=== PATIENT | male | born 1955 | race Two or more races ===

== ENCOUNTER 2024-09-15 11:05 | Inpatient (IN) | payer OTHER ==
[~2024-09-15] VITALS: Ht 170.2 cm; Wt 75.6 kg
--- NOTE | 2024-09-15 11:41 | ED.PDOC ---
GI ASSESSMENT HPI Comments 69y M who presents to the ED for chief complaint of abdominal pain. - pt states he has been having RUQ abdominal pain radiating to the R flank since 0600 this AM - pt states the pain is constant, with no noted exacerbating or relieving factors - pt has associated 1 x vomiting episode but pt otherwise denies nausea, diarrh ea, fever, cough, chills, dysuria, hematuria, or hematemesis - pt otherwise denies any other symptoms at this time PMH: HTN, DM PSH: eyelid surgery Medications: unknown Allergies: nkda social history: denies ETOH use, denies tobacco use, denies drug use Jayden; HPI: Poor Historian. 69-year-old male presents to emergency department for one day history of right sided abdominal pain right flank but mostly right upper quadrant pain that is constant with the associated one episode of nausea and vomiting nonbilious nonbloody. This started at 6:00 a.m. this morning. Pain is constant. No alleviating or precipitating factors. Past Medical History: Past Surgical History: REVIEW OF SYSTEMS: CONSTITUTIONAL: Denies acute: fever, diaphoresis, chills, generalized weakness. HEAD: Denies acute: headache, photophobia Eyes: Denies acute: Double vision, vision loss, eye pain, eye discharge. EARS: Denies acute: tinnitus, hearing loss, ear discharge, ear pain, THROAT: Denies acute: sore throat, swelling, difficulty swallowing , pain with swallowing, change in voice. NECK: Denies acute: neck pain, neck swelling, stiff neck. HEART: Denies acute : chest pain, palpitations, LUNGS: Denies acute: SOB, wheezing, cough, hemoptysis ABDOMEN: Denies acute: diarrhea, melena , hematemesis, hematochezia SKIN: Denies acute: rash, redness, lesions, itchiness. EXTREMITIES: Denies acute: calf pain, numbness, tingling, weakness, denies pain in extremity. Denies acute: Low back pain. Neuro: Denies acute: focal neurological deficit, motor or sensory focal neurological deficit, tremors, seizure like activity, confusion, dizziness, change in mental status, loss of bowel or bladder function, cauda equina like symptoms. : Denies acute: dysuria, hematuria, increase in urinary frequency. PSYCH: Denies acute: hallucination, suicidal ideation, homicidal ideation. PHYSICAL EXAM: General: ----[id number]----acute distress, awake and alert. Head: normocephalic, atraumatic. Neck: supple, trachea is midline, no swelling. Throat: Normal phonation. Eyes:, no erythema, no purulent discharge, no proptosis, no icterus. Heart: regular rate, regular rhythm, no significant murmur appreciated. Lungs: no apparent respiratory distress, Able to speak in full sentences. No wheezing, no rhonchi, no crackles. No stridors Clear to auscultation bilaterally. Abdomen: Right upper quadrant tender to palpation, non distended, soft, no guarding, no rebound, + bowel sounds. Neuro: Awake, Alert, oriented to name, self, situation, follows commands GCS=15. Speech is normal. Skin: no petechia, no purpura, no cyanosis, non-pale, not jaundice. Lower extremities: --no - Pitting edema no deformity, no focal swelling, no calf TTP. Makes eye contact. moves all four extremities. Face: no apparent facial droop. Minimal right CVA tenderness to percussion . Ambulating in the ED independently. ED COURSE: Time Seen by MD: 11:40 Reviewed Notes: Nurses Notes, Medications, Allergies Allergies: Coded Allergies: NO KNOWN ALLERGIES (Unverified , 09/15/24) Information Source: Patient Mode of Arrival: Ambulatory Brought in by: self Was a procedure done? Was a procedure done?: No GI differential Dx Differential Diagnosis: Other (Flank Pain;DDX include Nephrolethiasis, obstructive uropathy, kidney cancer, renal infarct, intraabdominal neoplasm, lower lobe pneumonia, retroperitoneal hemorrhage, pancreatitis, aneurysm, dissection, musculoskeletal, rib contusion/trauma, hematoma, PYLONEPHRITIS, muscle strain, spinal disease. ) X-Ray, Labs, Meds, VS Vital Signs Date Time Temp Pulse Resp B/P (MAP) Pulse Ox O2 Delivery O2 Flow Rate FiO2 09/15/24 18:50 89 20 96 Room Air 09/15/24 18:49 98.9 89 20 134/82 (99) 96 98.9 09/15/24 15:29 91 206/86 09/15/24 15:21 98.4 91 17 206/86 (126) 95 98.4 09/15/24 14:46 98.9 70 16 211/89 (129) 97 98.9 09/15/24 14:46 70 16 97 Room Air* 0 21 09/15/24 14:38 211/89 09/15/24 11:48 99.5 72 18 227/119 (155) 98 99.5 Lab Test 09/15/24 16:12 09/15/24 13:25 09/15/24 11:27 Range/Units Urine Color Light-yellow Yellow Urine Clarity Clear Clear Urine pH 6.5 5.0-9.0 Urine Specific [place] 1.031 1.001-1.035 Urine Protein Trace H Negative Urine Ketones 1+ H Negative Urine Blood Trace H Negative /uL Urine Nitrite Negative Negative Urine Bilirubin Negative Negative Urine Urobilinogen Normal Negative mg/dL Urine Leukocyte Esterase Negative Negative /uL Urine RBC 6 0 - 3 /hpf Urine Microscopic WBC 1 0-3 /HPF Urine Squamous Epithelial Cells None seen <5 /hpf Urine Bacteria None seen None Seen /hpf Urine Glucose 4+ H Normal mg/dL Lactic Acid Level 1.9 2.1 *H 0.4-2.0 mmol/L White Blood Count 14.6 H 4.4-10.8 10^3/uL Red Blood Count 5.61 4.5-5.90 10^6/uL Hemoglobin 16.3 13.5-17.5 g/dL Hematocrit 49.0 41.0-53.0 % Mean Corpuscular Volume 87.5 80.0-100.0 fL Mean Corpuscular Hemoglobin 29.1 28.0-32.0 pg Mean Corpuscular Hemoglobin Concent 33.2 32.0-36.0 g/dL Red Cell Distribution Width 14.0 11.8-14.3 % Platelet Count 357 140-450 10^3/uL Mean Platelet Volume 7.6 6.9-10.8 fL Neutrophils (%) (Auto) 84.0 H 37.0-80.0 % Lymphocytes (%) (Auto) 9.0 L 10.0-50.0 % Monocytes (%) (Auto) 6.1 0.0-12.0 % Eosinophils (%) (Auto) 0.4 0.0-7.0 % Basophils (%) (Auto) 0.5 0.0-2.0 % Neutrophils # (Auto) 12.3 H 1.6-8.6 10 ^3/uL Lymphocytes # (Auto) 1.3 0.4-5.4 10 ^3/uL Monocytes # (Auto) 0.9 0-1.3 10 ^3/uL Eosinophils # (Auto) 0.1 0-0.8 10 ^3/uL Basophils # (Auto) 0.1 0-0.2 10 ^3/uL Nucleated Red Blood Cells 0.0 % Sodium Level 134 L 136-145 mmol/L Potassium Level 4.5 3.5-5.1 mmol/L Chloride Level 97 L 98-107 mmol/L Carbon Dioxide Level 29 20-31 mmol/L Anion Gap 8 5-15 Blood Urea Nitrogen 18 9-23 mg/dL Creatinine 1.69 H 0.700-1.30 mg/dL Glomerular Filtration Rate Calc 43 >90 mL/min BUN/Creatinine Ratio 10.7 10.0-20.0 Serum Glucose 622 *H 74-106 mg/dL Hemoglobin A1c Pending Calcium Level 10.6 H 8.7-10.4 mg/dL Total Bilirubin 0.9 0.2-1.0 mg/dL Aspartate Amino Transferase (AST) 25 13-40 U/L Alanine Aminotransferase (ALT) 28 7-40 U/L Alkaline Phosphatase 235 H 46-116 U/L Troponin I High Sensitivity 13 </=54 ng/L Total Protein 7.8 5.7-8.2 g/dL Albumin 4.7 3.2-4.8 g/dL Lipase 43 12-53 U/L Current Medications Medications (Trade) Dose Ordered Sig/Annabelle Route Start Time Stop Time Status Last Admin Labetalol HCl (Labetalol HCl) 5 mg ONCE ONCE IV 09/15/24 11:45 09/15/24 11:46 DC 09/15/24 15:29 Ondansetron HCl (Zofran) 8 mg ONCE ONCE IV 09/15/24 11:45 09/15/24 11:46 DC 09/15/24 14:33 Insulin Human Regular (InsuLIN R) 5 units ONCE ONCE IV 09/15/24 12:30 09/15/24 12:42 DC 09/15/24 14:41 Sodium Chloride 1,000 ml @ 1,000 mls/hr Q1H ONCE IV 09/15/24 12:30 09/15/24 13:29 DC 09/15/24 14:31 Ceftriaxone Sodium 50 ml @ 100 mls/hr ONCE ONCE IV 09/15/24 13:00 09/15/24 13:29 DC 09/15/24 14:31 Tamsulosin HCl (Flomax) 0.4 mg ONCE ONCE PO 09/15/24 13:00 09/15/24 13:03 DC 09/15/24 14:31 Fentanyl Citrate 100 mcg ONCE ONCE IV 09/15/24 13:00 09/15/24 13:03 DC 09/15/24 14:38 Metoclopramide HCl (Reglan Injection) 5 mg ONCE ONCE IV 09/15/24 15:45 09/15/24 15:46 DC 09/15/24 15:54 [place] [id number] Ph: [phone] DIAGNOSTIC IMAGING Diagnostic Imaging Report : [id number] Signed PATIENT: ANNABELLE MORALESACCT: [id number] UNIT: [id number] : 1955 LOC: ER ROOM / BED: / AGE / SEX: 69 / M ADM STATUS: REG ER SERVICE [id number] ORDERING PHYSICIAN: DIDI CRUZ DO PROCEDURE(s): HWOCT - HEAD WITHOUT CONTRAST REASON: HIGH BP ORDER NUMBER(s): [id number], ACCESSION NUMBER(s): [id number] EXAM: CT HEAD WITHOUT CONTRAST INDICATION: HIGH BP TECHNIQUE: CT of the head without intravenous contrast. Coronal and sagittal reformatted images are submitted. Radiation Dose : 1. Head: CT Dose: CTDI volume is 11.9 mGy. Dose-length product is 719.5 mGy*cm The dose indicators for CT are the volume Computed Tomography (CT) Dose Index (CTDIvol) and the Dose Length Product (DLP), and are measured in units of mGy and mGy-cm, respectively. These indicators are not patient dose, but values generated from the CT scanner acquisition factors. The report includes radiation exposure data for exposures received during this examination. All CT scans at this medical facility are performed using dose modulation techniques as appropriate to a performed exam including the following: Automated exposure control was utilized; adjustment of the MA and/or KV according to patient size; and use of iterative reconstruction technique. COMPARISON: None FINDINGS: There is no evidence of acute intracranial hemorrhage, extra-axial collection, mass effect, midline shift, herniation or hydrocephalus. The ventricles, sulci and cisterns are age appropriate. The deng-white differentiation is intact. The visualized paranasal sinuses and mastoid air cells are clear. No depressed calvarial fracture. The surrounding soft tissues are unremarkable. IMPRESSION: 1. No acute intracranial abnormality. ATED BY: BRYN WILKINS MD DICTATED DATE/TIME: 09/15/241202 SIGNED BY: BRYN WILKINS MD SIGNED DATE/TIME: 09/15/241202 CC: [place] [id number] Ph: [phone] DIAGNOSTIC IMAGING Diagnostic Imaging Report : [id number] Signed PATIENT: ANNABELLE MORALESACCT: [id number] UNIT: [id number] : 1955 LOC: ER ROOM / BED: / AGE / SEX: 69 / M ADM STATUS: REG ER SERVICE [id number] ORDERING PHYSICIAN: DIDI CRUZ DO PROCEDURE(s): ABPL - CT AB PEL WO CON-NO ORAL OR IV REASON: R flank pain ORDER NUMBER(s): [id number], ACCESSION NUMBER(s): [id number] Exam: CT CT AB PEL WO CON-NO ORAL OR IV History: R flank pain Comparison Study: None available at time of dictation. Technique: Multidetector spiral CT of the abdomen and pelvis was performed from lung bases to pubic symphysis. Imaging was performed without intravenous contrast. Coronal and sagittal multiplanar reformats were obtained from the axial data set by the technologist. Radiation Dose : 1. Abdomen/Pelvis: CTDIvol 11.9 mGy, DLP 719.5 mGy*cm. Findings: Evaluation of vasculature and solid organs is limited due to lack of intravenous contrast use. Lung Bases: Lung bases are clear. Visualized portions of the heart and pericardium are unremarkable. Liver: The liver is normal in size. No focal lesions. Gallbladder and Biliary Tree: The gallbladder contains multiple gallstones. No intrahepatic or extrahepatic biliary ductal dilatation. Spleen: Unremarkable Pancreas: The pancreas is grossly unremarkable. Adrenal Glands: 2 cm left adrenal nodule. The right adrenal gland is unremarkable. Kidneys: Mild right hydroureteronephrosis due to 4 mm proximal ureteral calculus. There are additional nonobstructive intrarenal calculi in the right kidney. Right perinephric fat stranding. Punctate nonobstructing left intrarenal calculus. GI tract: The stomach is grossly normal in appearance. No evidence of small bowel wall thickening or abnormal dilatation to suggest bowel obstruction. Sigmoid diverticulosis without acute diverticulitis. The appendix is not visualized, however no inflammatory changes in the right lower quadrant to suggest acute appendicitis. Peritoneum/mesentery/retroperitoneum. No evidence of free intraperitoneal air. No ascites. No evidence of suspicious lymphadenopathy. Abdominal Wall: Unremarkable. Vasculature: The visualized abdominal aorta is normal in size and caliber. Evaluation of abdominal and pelvic vessels is limited due to lack of intravenous contrast. Urinary Bladder: Wall thickening of the urinary bladder. Pelvic Organs: The prostate is enlarged measuring 4.5 cm. Musculoskeletal: No aggressive focal bony lesions, acute fractures or dislocation. Soft tissues: Fat containing right inguinal hernia. IMPRESSION: 1. Right hydronephrosis due to 4 mm obstructing right proximal ureteral calculus. Additional bilateral nonobstructive intrarenal calculi. 2. Gallstones. 3. Sigmoid diverticulosis without acute diverticulitis. 4. Enlarged prostate. ATED BY: BRYN WILKINS MD DICTATED DATE/TIME: 09/15/241221 SIGNED BY: BRYN WILKINS MD SIGNED DATE/TIME: 09/15/242 CC: Time of 1ST Reevaluation: 13:58 (The case was discussed with the [place] admitting team (HPI, physical exam, labs and diagnostic tests that were available at the time of disposition, ED course, treatment plan) on the phone. They authorized us to keep the patient in our facility for further evaluation and treatment Dr. Nunez Authorization number is--[id number].Uncontrolled diabetes with hypertensive urgency and possibly an infected stone) Reevaluation 1ST: Unchanged Time of 2ND Reevaluation: 21:27 Reevaluation 2ND: Improved Patient Education/Counseling: Diagnosis, Treatment Family Education/Counseling: No Family Present Comments Patient presented with the above HPI.----right flank.--workup was initiated. patient was found with the above mentioned diagnosis. the following medications were ordered: please refer to order lists of meds and tests obtained by myself Dr. Cruz. Patient ED course and VS have been stabilized. Patient has been reassessed in the ED and remained in a stable condition. Pertinent incidental findings were discussed with the patient and/or family. Patient/family voices understanding and is agreeable with plan. Patient has been observed in the ED adequate length of time to insure improvemen t/stability. Escalation of care considered: Consideration of escalation to observation or admission Samuel was consulted. Patient was ADMITTED to the medicine team for further evaluation and treatment of their presentation. All the reports of any imaging studies that were ordered by myself were reviewed by myself. Departure 1 Departure Time of Disposition: 12:50 Impression: Primary Impression: Obstruction of right ureteropelvic junction due to stone Additional Impressions: Hyperglycemia Leukocytosis Sepsis Abnormal EKG Disposition: ADMITTED INPATIENT Admit to: Tele Condition: Guarded Discharged With: Self Critical Care Note Critical Care Time?: Yes (45 min-critical care time only) Heart Score Heart Score: Heart Score Response (Comments) Value History Slightly Suspicious [address]-Deviation 2 Age >65 2 Risk Factors 1 or 2 risk factors 1 Troponin Normal limit 0 Total 5 I personally scribed for DIDI CRUZ DO (DVFARMI) on 09/15/24 at 11:41. Electronically submitted by Ana Rosa Aguirre ([facility]). I personally scribed for DIDI CRUZ DO (DVFARMI) on 09/15/24 at 14:14. Electronically submitted by Ana Rosa Aguirre (IL[facility]). DIDI CRUZ DO September 15, 2024 11:41
[2024-09-15 11:57] LABS: Basophils # (auto) 0.1 10 ^3/uL (0-0.2); Basophils % (auto) 0.5 % (0.0-2.0); Eosinophils # (auto) 0.1 10 ^3/uL (0-0.8); Eosinophils % (auto) 0.4 % (0.0-7.0); Hemoglobin 16.3 g/dL (13.5-17.5); Lymphocytes # (auto) 1.3 10 ^3/uL (0.4-5.4); Mean Corpuscular Hemoglobin 29.1 pg (28.0-32.0); Mean Corpuscular Hgb Conc. 33.2 g/dL (32.0-36.0); Mean Corpuscular Volume 87.5 fL (80.0-100.0); Monocytes # (auto) 0.9 10 ^3/uL (0-1.3); Monocytes % (auto) 6.1 % (0.0-12.0); Neutrophils # (auto) 12.3 10 ^3/uL (1.6-8.6); Platelet Count (auto) 357 10^3/uL (140-450); Red Blood Cells 5.61 10^6/uL (4.5-5.90); White Blood Cell 14.6 10^3/uL (4.4-10.8)
--- NOTE | 2024-09-15 12:05 | DVH ---
EXAM: CT HEAD WITHOUT CONTRAST INDICATION: HIGH BP TECHNIQUE: CT of the head without intravenous contrast. Coronal and sagittal reformatted images are s ubmitted. Radiation Dose : 1. Head: CT Dose: CTDI volume is 11.9 mGy. Dose-length product is 719.5 mGy*cm The dose indicators for CT are the volume Computed Tomography (CT) Dose Index (CTDIvol) and the Dose Length Product (DLP), and are measured in units of mGy and mGy-cm, respectively. These indicators are not patient dose, but values generated from the CT scanner acquisition factors. The report includes radiation exposure data for exposures received during this examination. All CT scans at this medical facility are performed using dose modulation techniques as appropriate to a performed exam including the following: Automated exposure control was utilized; adjustment of the MA and/or KV according to patient size; and use of iterative reconstruction technique. COMPARISON: None FINDINGS: There is no evidence of acute intracranial hemorrhage, extra-axial collection, mass effect, midline s hift, herniation or hydrocephalus. The ventricles, sulci and cisterns are age appropriate. The deng-white differentiation is intact. The visualized paranasal sinuses and mastoid air cells are clear. No depressed calvarial fracture. The surrounding soft tissues are unremarkable. IMPRESSION: 1. No acute intracranial abnormality.
[2024-09-15 12:10] LABS: Alanine Aminotransferase 28 U/L (7-40); Albumin 4.7 g/dL (3.2-4.8); Anion Gap 8 (5-15); Aspartate Aminotransferase 25 U/L (13-40); BUN/Creatinine Ratio 10.7 (10.0-20.0); Bilirubin, Total 0.9 mg/dL (0.2-1.0); Blood Urea Nitrogen 18 mg/dL (9-23); Carbon Dioxide 29 mmol/L (20-31); Potassium 4.5 mmol/L (3.5-5.1); Total Protein 7.8 g/dL (5.7-8.2)
[2024-09-15 12:15] LABS: Alkaline Phosphatase 235 U/L (46-116); Calcium 10.6 mg/dL (8.7-10.4); Chloride 97 mmol/L (98-107); Sodium 134 mmol/L (136-145)
[2024-09-15 12:18] LABS: Glucose 622 mg/dL (74-106); Lactic Acid w/Reflex 2.1 mmol/L (0.4-2.0)
--- NOTE | 2024-09-15 12:25 | DVH ---
Exam: CT CT AB PEL WO CON-NO ORAL OR IV History: R flank pain Comparison Study: None available at time of dictation. Technique: Multidetector spiral CT of the abdomen and pelvis was performed from lung bases to pubic s ymphysis. Imaging was performed without intravenous contrast. Coronal and sagittal multiplanar reform ats were obtained from the axial data set by the technologist. Radiation Dose : 1. Abdomen/Pelvis: CTDIvol 11.9 mGy, DLP 719.5 mGy*cm. Findings: Evaluation of vasculature and solid organs is limited due to lack of intravenous contrast use. Lung Bases: Lung bases are clear. Visualized portions of the heart and pericardium are unremarkable. Liver: The liver is normal in size. No focal lesions. Gallbladder and Biliary Tree: The gallbladder contains multiple gallstones. No intrahepatic or extra hepatic biliary ductal dilatation. Spleen: Unremarkable Pancreas: The pancreas is grossly unremarkable. Adrenal Glands: 2 cm left adrenal nodule. The right adrenal gland is unremarkable. Kidneys: Mild right hydroureteronephrosis due to 4 mm proximal ureteral calculus. There are addition al nonobstructive intrarenal calculi in the right kidney. Right perinephric fat stranding. Punctat e nonobstructing left intrarenal calculus. GI tract: The stomach is grossly normal in appearance. No evidence of small bowel wall thickening or abnormal dilatation to suggest bowel obstruction. Sigmoid diverticulosis without acute diverticulitis . The appendix is not visualized, however no inflammatory changes in the right lower quadrant to sugg est acute appendicitis. Peritoneum/mesentery/retroperitoneum. No evidence of free intraperitoneal air. No ascites. No evidenc e of suspicious lymphadenopathy. Abdominal Wall: Unremarkable. Vasculature: The visualized abdominal aorta is normal in size and caliber. Evaluation of abdominal a nd pelvic vessels is limited due to lack of intravenous contrast. Urinary Bladder: Wall thickening of the urinary bladder. Pelvic Organs: The prostate is enlarged measuring 4.5 cm. Musculoskeletal: No aggressive focal bony lesions, acute fractures or dislocation. Soft tissues: Fat containing right inguinal hernia. IMPRESSION: 1. Right hydronephrosis due to 4 mm obstructing right proximal ureteral calculus. Additional bilater al nonobstructive intrarenal calculi. 2. Gallstones. 3. Sigmoid diverticulosis without acute diverticulitis. 4. Enlarged prostate.
[2024-09-15] MEDS: TAMSULOSIN HYDROCHLORIDE 0.4 MG CAP PO ONE (14:31)
[2024-09-15] MEDS: SODIUM CHLORIDE 0.9% 1,000 ML IV ONE (14:31)
[2024-09-15] MEDS: cefTRIAXone 1GM/50ML D5W 50 ML IV ONE (14:31)
[2024-09-15] MEDS: ONDANSETRON HCL 4 MG/2 ML VIAL IV ONE (14:33)
[2024-09-15] MEDS: fentaNYL CITRATE 100 MCG/2 ML VL IV ONE (14:38)
[2024-09-15] MEDS: InsuLIN REG 1unit/0.01ml Soln (100units/ml) IV ONE (14:41)
[2024-09-15 14:46] VITALS: PULSE 70; RESP 16; O2SAT 97
[2024-09-15] MEDS: LABETALOL HCL 20 MG/4 ML VL IV ONE (15:29)
[2024-09-15] MEDS: SODIUM CHLORIDE 0.9% 500 ML IV ONE (15:31)
[2024-09-15] MEDS: METOCLOPRAMIDE HCL 5MG/ml INJ 2ml VIAL IV ONE (15:54)
[2024-09-15 16:14] LABS: Urine Bacteria None Seen /hpf (None Seen)
[2024-09-15 16:22] LABS: Urine Blood TRACE /uL (Negative); Urine Clarity Clear (Clear); Urine Color Light-Yellow (Yellow); Urine Protein, UAD TRACE (Negative); Urine Specific Gravity 1.031 (1.001-1.035); Urine Squamous Epithelial Cell None Seen /hpf (<5); Urine Urobilinogen Normal (Negative); Urine WBC 1 /HPF (0-3); Urine pH 6.5 (5.0-9.0)
[2024-09-15] MEDS ORDERED: DOCUSATE SOD 100 MG CAP PO PRN (21:15)
[2024-09-15] MEDS ORDERED: ACETAMINOPHEN 325 MG TAB PO PRN (21:15)
[2024-09-15] MEDS ORDERED: ONDANSETRON HCL 4 MG/2 ML VIAL IV PRN (21:15)
[2024-09-15] MEDS ORDERED: DEXTROSE (50%) 50ML SYRG IV PRN (21:15)
[2024-09-15] MEDS: ATORVASTATIN 20 MG TAB PO SCH (22:57)
[2024-09-15] MEDS: METOPROLOL TARTRATE 25 MG TAB PO SCH (22:57)
[2024-09-15] MEDS: SODIUM CHLORIDE 0.9% 1,000 ML IV SCH (22:59)
[2024-09-15] MEDS ORDERED: MORPHINE SULFATE INJ 2 MG/ml SYRG IV PRN (23:30)
[2024-09-15] MEDS ORDERED: NITROGLYCERIN 0.4 MG SL TAB SL PRN (23:30)
--- NOTE | 2024-09-15 23:30 | DVHHP2 ---
History of Present Illness Reason for Visit: Hypertensive urgency History of Present Illness The patient is a 69 year male with past medical history of hypertension and diabetes mellitus who presented to [facility] ED with complaint of abdominal pain. Patient reports having right upper quadrant abdominal pain, radiating to the right flank, constant in nature, rating 7/10 numeric scale, getting worse that prompted this visit. Patient was seen and evaluated in the ED, laboratory data shows WBC 14.6, platelets 357, sodium 134, potassium 4.5, BUN 18, creatinine 1.69, glucose 622, troponin 13, lipase 43, lactic acid 2.1 trending down to 1.9, blood pressure 211/89 trending down to 134/82, heart rate 90, temperature 98.9 F, O2 saturation 96% room air. Abdomen/pelvis CT revealing right hydronephrosis due to 4 mm obstructing right proximal ureteral calculus. Patient was started on IV antibiotic regimen, given fentanyl 100 mcg intractable, please see medication orders section in the computer. On my assessment, patient denied chest pain, no headache, no dizziness, no palpitations, no diaphoresis, no shortness of breaths, no nausea, no vomiting, no fever, no chills. Patient was admitted for further evaluation and medical management. Past Medical History Hypertension, diabetes mellitus Past Surgical History Eyelid surgery Family History Reviewed, noncontributory to the management of this case. Past Social History The patient lives at home, denies smoking, alcohol or illicit drugs abuse. Review of Systems Constitutional: No: Fever, Chills, Sweats, Weakness, Malaise, Other Eyes: No: Pain, Vision change, Conjunctivae inflammation, Eyelid inflammation, Other, Redness ENT: No: Ear pain, Ear discharge, Nose pain, Nose discharge, Nose congestion, Mouth pain, Mouth swelling, Throat pain, Throat swelling, Other Respiratory: No: Cough, Dry, Shortness of breath, SOB with excertion, Wheezing, Hemoptysis, Pleuritic Pain, Sputum, Wheezing, Other Cardiovascular: No: Chest Pain, Palpitations, Orthopnea, Paroxysmal Noc. Dyspnea, Edema, Lt Headedness, Other Gastrointestinal: Abdominal Pain; No: Nausea, Vomiting, Diarrhea, Constipation, Melena, Hematochezia, Other Genitourinary: No Dysuria, No Frequency, No Incontinence, No Hematuria, No Retention; Other (Flank pain) Musculoskeletal: No: other, neck pain, shoulder pain, arm pain, back pain, hand pain, leg pain, foot pain Skin: No: Rash, Lesions, Jaundice, Bruising, Other Neurological: No: Weakness, Numbness, Incoordination, Change in speech, Confusion, Seizures, Other Allergies: Coded Allergies: NO KNOWN ALLERGIES (Unverified , 09/15/24) Medications Current Medications Medications Dose Ordered Sig/Annabelle Route Start Time Stop Time Status Last Admin Dose Admin Ceftriaxone Sodium 50 ml @ 100 mls/hr DAILY@09 IV 09/16/24 09:00 Tamsulosin HCl 0.4 mg QPM PO 09/16/24 18:00 Hydralazine HCl 10 mg Q6HP PRN IV 09/15/24 21:15 Metoprolol Tartrate 25 mg BID PO 09/15/24 22:00 09/15/24 22:57 25 MG Amlodipine Besylate 5 mg DAILY PO 09/16/24 10:00 Diagnostic Test (Pha) 1 strip IQ4HR 09/16/24 00:00 Insulin Human Regular IQ4HR SC 09/16/24 00:00 Dextrose 50 ml UD PRN IV 09/15/24 21:15 Sodium Chloride 1,000 ml @ 60 mls/hr [id number] IV 09/15/24 21:15 09/15/24 22:59 60 MLS/HR Acetaminophen/ Hydrocodone Bitart 1 tab Q4HP PRN PO 09/15/24 21:15 Ondansetron HCl 4 mg Q4HP PRN IV 09/15/24 21:15 Docusate Sodium 100 mg BIDPRN PRN PO 09/15/24 21:15 Acetaminophen 650 mg Q6HP PRN PO 09/15/24 21:15 Atorvastatin Calcium 10 mg HS PO 09/15/24 22:00 09/15/24 22:57 10 MG Aspirin 81 mg DAILY PO 09/16/24 10:00 Exam Vital Signs Vital Signs Date Time Temp Pulse Resp B/P (MAP) Pulse Ox O2 Delivery O2 Flow Rate FiO2 09/15/24 23:00 98.0 106 18 157/82 (107) 95 98.0 09/15/24 18:50 Room Air 09/15/24 14:46 0 21 General Appearance: Alert, Oriented X3, Cooperative, No acute distress HEENT: Atraumatic, PERRLA, EOMI, Mucous membr. moist/pink Respiratory: Clear to auscultation, Normal air movement Cardiovascular: Regular rate, Normal S1, Normal S2, No murmurs Abdominal: Normal bowel sounds, Soft, No tenderness, No hepatospenomegaly, No masses Extremities: No clubbing, No cyanosis, No edema, Normal pulses, No tenderness/swelling Skin: No rashes, No breakdown, No significant lesion Neuro: Normal gait, Normal speech, Strength at 5/5 X4 ext, Normal tone, Sensation intact, Cranial nerves 3-12 NL, Reflexes 2+ Psych/Mental Status: Mental status NL, Mood NL Labs/Xrays Labs Test 09/15/24 16:12 09/15/24 13:25 09/15/24 11:27 Range/Units Urine Color Light-yellow Yellow Urine Clarity Clear Clear Urine pH 6.5 5.0-9.0 Urine Specific [place] 1.031 1.001-1.035 Urine Protein Trace H Negative Urine Ketones 1+ H Negative Urine Blood Trace H Negative /uL Urine Nitrite Negative Negative Urine Bilirubin Negative Negative Urine Urobilinogen Normal Negative mg/dL Urine Leukocyte Esterase Negative Negative /uL Urine RBC 6 0 - 3 /hpf Urine Microscopic WBC 1 0-3 /HPF Urine Squamous Epithelial Cells None seen <5 /hpf Urine Bacteria None seen None Seen /hpf Urine Glucose 4+ H Normal mg/dL Lactic Acid Level 1.9 0.4-2.0 mmol/L White Blood Count 14.6 H 4.4-10.8 10^3/uL Red Blood Count 5.61 4.5-5.90 10^6/uL Hemoglobin 16.3 13.5-17.5 g/dL Hematocrit 49.0 41.0-53.0 % Mean Corpuscular Volume 87.5 80.0-100.0 fL Mean Corpuscular Hemoglobin 29.1 28.0-32.0 pg Mean Corpuscular Hemoglobin Concent 33.2 32.0-36.0 g/dL Red Cell Distribution Width 14.0 11.8-14.3 % Platelet Count 357 140-450 10^3/uL Mean Platelet Volume 7.6 6.9-10.8 fL Neutrophils (%) (Auto) 84.0 H 37.0-80.0 % Lymphocytes (%) (Auto) 9.0 L 10.0-50.0 % Monocytes (%) (Auto) 6.1 0.0-12.0 % Eosinophils (%) (Auto) 0.4 0.0-7.0 % Basophils (%) (Auto) 0.5 0.0-2.0 % Neutrophils # (Auto) 12.3 H 1.6-8.6 10 ^3/uL Lymphocytes # (Auto) 1.3 0.4-5.4 10 ^3/uL Monocytes # (Auto) 0.9 0-1.3 10 ^3/uL Eosinophils # (Auto) 0.1 0-0.8 10 ^3/uL Basophils # (Auto) 0.1 0-0.2 10 ^3/uL Nucleated Red Blood Cells 0.0 % Sodium Level 134 L 136-145 mmol/L Potassium Level 4.5 3.5-5.1 mmol/L Chloride Level 97 L 98-107 mmol/L Carbon Dioxide Level 29 20-31 mmol/L Anion Gap 8 5-15 Blood Urea Nitrogen 18 9-23 mg/dL Creatinine 1.69 H 0.700-1.30 mg/dL Glomerular Filtration Rate Calc 43 >90 mL/min BUN/Creatinine Ratio 10.7 10.0-20.0 Serum Glucose 622 *H 74-106 mg/dL Hemoglobin A1c > 14.0 H <5.7 % A1C Calcium Level 10.6 H 8.7-10.4 mg/dL Total Bilirubin 0.9 0.2-1.0 mg/dL Aspartate Amino Transferase (AST) 25 13-40 U/L Alanine Aminotransferase (ALT) 28 7-40 U/L Alkaline Phosphatase 235 H 46-116 U/L Troponin I High Sensitivity 13 </=54 ng/L Total Protein 7.8 5.7-8.2 g/dL Albumin 4.7 3.2-4.8 g/dL Lipase 43 12-53 U/L PATIENT: ANNABELLE MORALESACCT: [id number] UNIT: [id number] : 1955 LOC: ER ROOM / BED: / AGE / SEX: 69 / M ADM STATUS: REG ER SERVICE 1117 ORDERING PHYSICIAN: DIDI CRUZ DO PROCEDURE(s): ABPL - CT AB PEL WO CON-NO ORAL OR IV REASON: R flank pain ORDER NUMBER(s): [id number], ACCESSION NUMBER(s): [id number] Exam: CT CT AB PEL WO CON-NO ORAL OR IV History: R flank pain Comparison Study: None available at time of dictation. Technique: Multidetector spiral CT of the abdomen and pelvis was performed from lung bases to pubic symphysis. Imaging was performed without intravenous contrast. Coronal and sagittal multiplanar reformats were obtained from the axial data set by the technologist. Radiation Dose : 1. Abdomen/Pelvis: CTDIvol 11.9 mGy, DLP 719.5 mGy*cm. Findings: Evaluation of vasculature and solid organs is limited due to lack of intravenous contrast use. Lung Bases: Lung bases are clear. Visualized portions of the heart and per icardium are unremarkable. Liver: The liver is normal in size. No focal lesions. Gallbladder and Biliary Tree: The gallbladder contains multiple gallstones. No intrahepatic or extrahepatic biliary ductal dilatation. Spleen: Unremarkable Pancreas: The pancreas is grossly unremarkable. Adrenal Glands: 2 cm left adrenal nodule. The right adrenal gland is unremarkable. Kidneys: Mild right hydroureteronephrosis due to 4 mm proximal ureteral calculus. There are additional nonobstructive intrarenal calculi in the right kidney. Right perinephric fat stranding. Punctate nonobstructing left intrarenal calculus. GI tract: The stomach is grossly normal in appearance. No evidence of small bowel wall thickening or abnormal dilatation to suggest bowel obstruction. S igmoid diverticulosis without acute diverticulitis. The appendix is not visualized, however no inflammatory changes in the right lower quadrant to suggest acute appendicitis. Peritoneum/mesentery/retroperitoneum. No evidence of free intraperitoneal air. No ascites. No evidence of suspicious lymphadenopathy. Abdominal Wall: Unremarkable. Vasculature: The visualized abdominal aorta is normal in size and caliber. Evaluation of abdominal and pelvic vessels is limited due to lack of intravenous contrast. Urinary Bladder: Wall thickening of the urinary bladder. Pelvic Organs: The prostate is enlarged measuring 4.5 cm. Musculoskeletal: No aggressive focal bony lesions, acute fractures or dislocation. Soft tissues: Fat containing right inguinal hernia. IMPRESSION: 1. Right hydronephrosis due to 4 mm obstructing right proximal ureteral calculus. Additional bilateral nonobstructive intrarenal calculi. 2. Gallstones. 3. Sigmoid diverticulosis without acute diverticulitis. 4. Enlarged prostate. ORDERING PHYSICIAN: DDII CRUZ DO PROCEDURE(s): HWOCT - HEAD WITHOUT CONTRAST REASON: HIGH BP ORDER NUMBER(s): [id number], ACCESSION NUMBER(s): [id number] EXAM: CT HEAD WITHOUT CONTRAST INDICATION: HIGH BP TECHNIQUE: CT of the head without intravenous contrast. Coronal and sagittal reformatted images are submitted. Radiation Dose: 1. Head: CT Dose: CTDI volume is 11.9 mGy. Dose-length product is 719.5 mGy*cm The dose indicators for CT are the volume Computed Tomography (CT) Dose Index (CTDIvol) and the Dose Length Product (DLP), and are measured in units of mGy and mGy-cm, respectively. These indicators are not patient dose, but values generated from the CT scanner acquisition factors. The report includes radiation exposure data for exposures received during this examination. All CT scans at this medical facility are performed using dose modulation techniques as appropriate to a performed exam including the following: Automated exposure control was utilized; adjustment of the MA and/or KV according to patient size; and use of iterative reconstruction technique. COMPARISON: None FINDINGS: There is no evidence of acute intracranial hemorrhage, extra-axial collection, mass effect, midline shift, herniation or hydrocephalus. The ventricles, sulci and cisterns are age appropriate. The deng-white differentiation is intact. The visualized paranasal sinuses and mastoid air cells are clear. No depressed calvarial fracture. The surrounding soft tissues are unremarkable. IMPRESSION: 1. No acute intracranial abnormality. Assessment/Plan Assessment/Plan Acute abdominal pain Leukocytosis, unspecified Diabetes mellitus with hyperglycemia Acute renal injury Hypertensive urgency Obstruction of right ureteropelvic junction due to stone Plan 1. Admit to telemetry unit 2. Breathing treatment 3. Pain control management 4. IV antibiotic management 5. Management of fluids and electrolytes 6. Consultation for hospitalist 7. Diagnostic test abdomen/pelvis CT 8. DVT prophylaxis on aspirin 9. Repeat labs CBC, CMP in a.m. 10. Home medication reviewed and reconciled 11. Continue with current medical management 12. Treatment plan discussed with patient and RN. Patient verbalized understanding. Plan discussed with: Patient, Other (RN) My Orders Orders - JHON FUNK DNP Procedure Category Date Status Time Ceftriaxone 1gm/50ml PHA 09/16/24 In Process D5w (Rocephin) 09:00 Consistent DIET 09/16/24 Transmitted Carb(Ccho)Diabetes Breakfast * Urology Consult CONS 09/15/24 Transmitted 21:08 Tamsulosin PHA 09/16/24 In Process Hydrochloride (Flomax) 18:00 Hydralazine Injection PHA 09/15/24 In Process (Apresoline Inject 21:15 Metoprolol Tartrate PHA 09/15/24 In Process Tablet (Lopressor Ta 22:00 Amlodipine Tablet PHA 09/16/24 In Process (Norvasc Tablet) 10:00 Blood Culture YOCASTA 09/15/24 In Process 21:08 Glucose Blood PHA 09/16/24 In Process (Accu-Chek Comfort 00:00 Insulin R (Human) PHA 09/16/24 In Process (Insulin R) 00:00 Dextrose 50% Syringe PHA 09/15/24 In Process 21:15 Allergies OZZY 09/15/24 In Process 21:08 Code Status CODE 09/15/24 Transmitted 21:08 Sodium Chloride 0.9% PHA 09/15/24 In Process 21:15 Oxygen Per Hour RT 09/15/24 Transmitted 21:08 Hydrocodone-Acet PHA 09/15/24 In Process 5/325mg Tab (Marlin 21:15 Ondansetron Hcl PHA 09/15/24 In Process (Zofran) 21:15 Docusate Sodium PHA 09/15/24 In Process Capsule (Colace 21:15 Complete Blood Count LAB 09/16/24 Verified 04:00 Comprehensive LAB 09/16/24 Verified Metabolic Panel 04:00 Condition: Serious OZZY 09/15/24 In Process 21:08 Acetaminophen Tablet PHA 09/15/24 In Process (Tylenol Tablet) 21:15 Bedrest With Bathroom OZZY 09/15/24 In Process Privileg 21:08 Sequential OZZY 09/15/24 In Process Compression Device Atorvastatin (Lipitor) PHA 09/15/24 In Process 22:00 Aspirin Tablet PHA 09/16/24 In Process 10:00 Admit ADMIT 09/15/24 Verified 23:29 Nitroglycerin PHA 09/15/24 Verified Sublingual (Ntrostat 23:30 Morphine Sulfate PHA 09/15/24 Verified Injection 23:30 Notify Of Changes OZZY 09/15/24 Verified From Base 23:29 Recovery Rn For OZZY 09/15/24 Verified 24 Hours 23:29 Emergency Dysrhythmia OZZY 09/15/24 Verified Protocol 23:29 Rhythm Strips Once OZZY 09/15/24 Verified Every Shift 23:29 Oxygen By Nasal RT 09/15/24 Verified Cannula 23:29 Problem List: (1) Acute abdominal pain (2) Leukocytosis, unspecified (3) Hypertensive urgency (4) Diabetes mellitus with hyperglycemia (5) Acute renal injury (6) Obstruction of right ureteropelvic junction due to stone Date of Service: September 15, 2024 Billing Provider: JHON FUNK DNP Common Visit Codes: [id number] INP/OBS CARE (HIGH) JHON FUNK DNP September 15, 2024 23:30
[2024-09-16] VITALS (9 sets, daily range): BP systolic 123–165; BP diastolic 61–84; PULSE 63–88; RESP 16–18; TEMP 97.5–98.7; O2SAT 93–95
[2024-09-16] MEDS: ACCU-CHEK COMFORT CURVE STRIP VI SCH (00:36)
[2024-09-16] MEDS: InsuLIN REG 1unit/0.01ml Soln (100units/ml) SC SCH (00:42)
[2024-09-16] MEDS ORDERED: LOSA-534 PO (02:08)
[2024-09-16] MEDS ORDERED: ATOR20TA50 PO (02:08)
[2024-09-16] MEDS ORDERED: AMLO1TAB22 PO (02:08)
[2024-09-16] MEDS ORDERED: METF-762 PO (02:08)
[2024-09-16] MEDS: HYDROcodone-ACET 5/325MG TAB PO PRN (02:10)
[2024-09-16] MEDS: metroNIDAZOLE 500MG/100ML 100 ML IV SCH (06:07)
--- NOTE | 2024-09-16 06:54 | ECG ---
[facility] Test Date: 2024-09-15 Test Time: 11:29:36 Pat Name: ANNABELLE MORALES Department: ER Room: 0292T A Gender: M Utilization Review Specialist: EBONI : 1955 Requested By: DIDI CRUZ Order Number: [id number] Reading MD: Mando Perales Measurements Intervals [place] Rate: 87 P: 73 MO: 189 QRS: 34 QRSD: 79 T: -52 QT: 366 QTc: 441 Interpretive Statements Sinus rhythm Sinus pause Probable anterior infarct, age indeterminate Abnormal T, consider ischemia, diffuse leads Lateral leads are also involved Baseline wander in lead(s) III,aVL,aVF,V2,V3,V5,V6 Electronically Signed On 09-16-2024 9:19:29 PDT by Mando Perales Please click the below link to view image of tracing.
[2024-09-16 07:48] LABS: Basophils # (auto) 0.1 10 ^3/uL (0-0.2); Basophils % (auto) 0.5 % (0.0-2.0); Eosinophils # (auto) 0.1 10 ^3/uL (0-0.8); Eosinophils % (auto) 0.6 % (0.0-7.0); Hematocrit 45.1 % (41.0-53.0); Hemoglobin 15.2 g/dL (13.5-17.5); Lymphocytes # (auto) 3.3 10 ^3/uL (0.4-5.4); Mean Corpuscular Hemoglobin 29.3 pg (28.0-32.0); Mean Corpuscular Hgb Conc. 33.8 g/dL (32.0-36.0); Mean Corpuscular Volume 86.8 fL (80.0-100.0); Monocytes # (auto) 1.6 10 ^3/uL (0-1.3); Monocytes % (auto) 10.2 % (0.0-12.0); Neutrophils # (auto) 10.5 10 ^3/uL (1.6-8.6); Neutrophils % (auto) 67.7 % (37.0-80.0); Platelet Count (auto) 324 10^3/uL (140-450); Red Cell Distribution Width 14.2 % (11.8-14.3); White Blood Cell 15.6 10^3/uL (4.4-10.8)
[2024-09-16 07:59] LABS: Alanine Aminotransferase 25 U/L (7-40); Albumin 4.3 g/dL (3.2-4.8); Anion Gap 13 (5-15); Aspartate Aminotransferase 15 U/L (13-40); BUN/Creatinine Ratio 13.1 (10.0-20.0); Blood Urea Nitrogen 21 mg/dL (9-23); Calcium 10.3 mg/dL (8.7-10.4); Carbon Dioxide 28 mmol/L (20-31); Chloride 105 mmol/L (98-107); Total Protein 7.1 g/dL (5.7-8.2)
[2024-09-16 08:02] LABS: Alkaline Phosphatase 147 U/L (46-116); Glucose 67 mg/dL (74-106); Potassium 3.1 mmol/L (3.5-5.1); Sodium 146 mmol/L (136-145)
[2024-09-16] MEDS: cefTRIAXone 1GM/50ML D5W 50 ML IV SCH (08:22)
[2024-09-16] MEDS: amLODIPine BESYLATE 5 MG TAB PO SCH (10:17)
[2024-09-16] MEDS: ASPirin 81 mg TAB PO SCH (10:17)
--- NOTE | 2024-09-16 11:27 | DVHPN2 ---
Reviewed: Care Plan, H&P, Labs, Medications, Previous Orders, Radiology Changes from previous H/P or p: No Changes Eyes: No Pain, No Vision change, No Conjunctivae inflammation, No Eyelid inflammation, No Other, No Redness ENT: No Ear pain, No Ear discharge, No Nose pain, No Nose discharge, No Nose congestion, No Mouth pain, No Mouth swelling, No Throat pain, No Throat swelling, No Other Cardiovascular: No Chest Pain, No Palpitations, No Orthopnea, No Paroxysmal Noc. Dyspnea, No Edema, No Lt Headedness, No Other Respiratory: No Cough, No Dry, No Shortness of breath, No SOB with excertion, No Wheezing, No Hemoptysis, No Pleuritic Pain, No Sputum, No Other Gastrointestinal: No Nausea, No Vomiting; Abdominal Pain; No Diarrhea, No Constipation, No Melena, No Hematochezia, No Other Genitourinary: No Dysuria, No Frequency, No Incontinence, No Hematuria, No Retention; Other (Flank pain) Musculoskeletal: No other, No neck pain, No shoulder pain, No arm pain, No back pain, No hand pain, No leg pain, No foot pain Skin: No Rash, No Lesions, No Jaundice, No Bruising, No Other Objective Vitals Vital Signs Date Time Temp Pulse Resp B/P (MAP) Pulse Ox O2 Delivery O2 Flow Rate FiO2 09/16/24 10:17 123/61 09/16/24 10:17 71 09/16/24 08:35 98.3 17 93 98.3 09/16/24 08:00 Room Air* 0 21 Intake/Output Intake and Output 09/16/24 07:00 Intake Total 1470 ml Balance 1470 ml Intake Oral 0 ml IV Total 1470 ml Medications Current Medications Medications Dose Ordered Sig/Annabelle Route Start Time Stop Time Status Last Admin Dose Admin Ceftriaxone Sodium 50 ml @ 100 mls/hr DAILY@09 IV 09/16/24 09:00 09/16/24 08:22 100 MLS/HR Tamsulosin HCl 0.4 mg QPM PO 09/16/24 18:00 Hydralazine HCl 10 mg Q6HP PRN IV 09/15/24 21:15 Metoprolol Tartrate 25 mg BID PO 09/15/24 22:00 09/16/24 10:17 25 MG Amlodipine Besylate 5 mg DAILY PO 09/16/24 10:00 09/16/24 10:17 5 MG Diagnostic Test (Pha) 1 strip IQ4HR 09/16/24 00:00 09/16/24 08:22 1 STRIP Insulin Human Regular IQ4HR SC 09/16/24 00:00 09/16/24 08:33 2 UNITS Dextrose 50 ml UD PRN IV 09/15/24 21:15 Sodium Chloride 1,000 ml @ 60 mls/hr [id number] IV 09/15/24 21:15 09/15/24 22:59 60 MLS/HR Acetaminophen/ Hydrocodone Bitart 1 tab Q4HP PRN PO 09/15/24 21:15 09/16/24 02:10 1 TAB Ondansetron HCl 4 mg Q4HP PRN IV 09/15/24 21:15 Docusate Sodium 100 mg BIDPRN PRN PO 09/15/24 21:15 Acetaminophen 650 mg Q6HP PRN PO 09/15/24 21:15 Atorvastatin Calcium 10 mg HS PO 09/15/24 22:00 09/15/24 22:57 10 MG Aspirin 81 mg DAILY PO 09/16/24 10:00 09/16/24 10:17 81 MG Nitroglycerin 0.4 mg Q5MINP PRN SL 09/15/24 23:30 Morphine Sulfate 2 mg Q30M PRN IV 09/15/24 23:30 Metronidazole 100 ml @ 100 mls/hr Q8HR IV 09/16/24 06:00 09/16/24 06:07 100 MLS/HR Laboratory Results Laboratory Tests 09/16/24 06:46 Chemistry Test 09/15/24 11:27 09/16/24 06:46 Albumin 4.7 g/dL (3.2-4.8) 4.3 g/dL (3.2-4.8) Calcium Level 10.6 mg/dL (8.7-10.4) H 10.3 mg/dL (8.7-10.4) Total Protein 7.8 g/dL (5.7-8.2) 7.1 g/dL (5.7-8.2) Lipid panel Test 09/15/24 11:27 Lipase 43 U/L (12-53) LFT Test 09/15/24 11:27 09/16/24 06:46 Alanine Aminotransferase (ALT) 28 U/L (7-40) 25 U/L (7-40) Alkaline Phosphatase 235 U/L (46-116) H 147 U/L (46-116) H Aspartate Amino Transferase (AST) 25 U/L (13-40) 15 U/L (13-40) Total Bilirubin 0.9 mg/dL (0.2-1.0) 1.0 mg/dL (0.2-1.0) HgA1c, TSH Test 09/15/24 11:27 Hemoglobin A1c > 14.0 % A1C (<5.7) H Urinalysis Test 09/15/24 16:12 Urine Color Light-yellow (Yellow) Urine Clarity Clear (Clear) Urine pH 6.5 (5.0-9.0) Urine Specific [place] 1.031 (1.001-1.035) Urine Protein Trace (Negative) H Urine Ketones 1+ (Negative) H Urine Blood Trace /uL (Negative) H Urine Nitrite Negative (Negative) Urine Bilirubin Negative (Negative) Urine Urobilinogen Normal mg/dL (Negative) Urine Leukocyte Esterase Negative /uL (Negative) Urine RBC 6 /hpf (0 - 3) Urine Microscopic WBC 1 /HPF (0-3) Urine Squamous Epithelial Cells None seen /hpf (<5) Urine Bacteria None seen /hpf (None Seen) Urine Glucose 4+ mg/dL (Normal) H Labs and/or images reviewed: Labs reviewed by me, Image(s) reviewed by me Assessment/Plan Assessment/Plan Acute right flank pain secondary to ureteral stone 4 mm proximal right ureteral stone with hydronephrosis: Consult for Urology Dr. Powell Sepsis secondary to possible urinary tract infection: Rocephin Systemic inflammatory response syndrome Acute hyperglycemia with blood sugar 622 on insulin aggressive sliding scale Uncontrolled diabetes type 2 A1c 14.0, diabetic education Hypertensive emergency with blood pressure 227/119 cardiology consult Acute hypokalemia potassium 3.1: Replace potassium Gallstones Diverticulosis Enlarged prostate CT head negative Lipase normal 43 Time Spent 70 minutes Advanced care planning time 20 minutes Patient is full code Patient not stable for transfer to [place] Plan discussed with: Patient My Orders Orders - ROWAN VARGAS MD Procedure Category Date Status Time * Urology Consult CONS 09/16/24 Transmitted 11:15 Date of Service: September 16, 2024 Billing Provider: ROWAN VARGAS MD Common Visit Codes: [id number] CARE 30-74 MIN ROWAN VARGAS MD September 16, 2024 11:27
[2024-09-16] MEDS: hydrALAZINE HCL 20 MG/ML VL IV PRN (11:59)
[2024-09-16] MEDS: KETOROLAC TROMETH 30 MG/ML 1ML VIAL IV PRN (13:33)
--- NOTE | 2024-09-16 13:40 | DVHINCON2 ---
Date of service: September 16, 2024 Referring Physician Hospitalist Reason for Consultation 4 mm right proximal ureteral calculus with mild hydronephrosis History of Present Illness 69 year male with past medical history of hypertension and diabetes mellitus who presented to [facility] ED with complaint of abdominal pain. Patient reports having right upper quadrant abdominal pain, radiating to the right flank, constant in nature, rating 7/10 numeric scale, getting worse that prompted this visit. Patient was seen and evaluated in the ED, laboratory data shows WBC 14.6, platelets 357, sodium 134, potassium 4.5, BUN 18, creatinine 1.69, glucose 622, troponin 13, lipase 43, lactic acid 2.1 trending down to 1.9, blood pressure 211/89 trending down to 134/82, heart rate 90, temperature 98.9 F, O2 saturation 96% room air. Abdomen/pelvis CT revealing right hydronephrosis due to 4 mm obstructing right proximal ureteral calculus. Patient was started on IV antibiotic regimen, given fentanyl 100 mcg intractable, please see medication orders section in the computer. On my assessment, patient denied chest pain, no headache, no dizziness, no palpitations, no diaphoresis, no shortness of breaths, no nausea, no vomiting, no fever, no chills. Patient was admitted for further evaluation and medical management. Past Medical History Hypertension, diabetes mellitus Past Surgical History Eyelid surgery Family History: Cerebrovascular accident (CVA) G8 MOTHER Diabetes mellitus G8 MOTHER Hypercholesterolemia G8 MOTHER Hypertension G8 MOTHER Allergies: Coded Allergies: NO KNOWN ALLERGIES (Unverified , 09/15/24) Home Meds Reported Medications Metformin Hydrochloride (Metformin Hydrochloride E) 500 Mg Tab, 1 TAB PO BID 09/16/24 Atorvastatin Calcium (ATORVASTATIN CALCIUM) 20 Mg Tab, 1 TAB PO DAILY 09/16/24 Amlodipine Besylate (Amlodipine Besylate) 5 Mg Tab, 1 TAB PO DAILY 09/16/24 Losartan Potassium (Losartan Potassium) 50 Mg Tab, 1 TAB PO BID 09/16/24 Current Medications Current Medications Medications (Trade) Dose Ordered Sig/Annabelle Route PRN Reason Start Time Stop Time Status Last Admin Ceftriaxone Sodium 50 ml @ 100 mls/hr DAILY@09 IV 09/16/24 09:00 09/16/24 08:22 Tamsulosin HCl (Flomax) 0.4 mg QPM PO 09/16/24 18:00 Hydralazine HCl (Apresoline Injection) 10 mg Q6HP PRN IV SBP>150 09/15/24 21:15 09/16/24 11:59 Metoprolol Tartrate (Lopressor Tablet) 25 mg BID PO 09/15/24 22:00 09/16/24 10:17 Amlodipine Besylate (Norvasc Tablet) 5 mg DAILY PO 09/16/24 10:00 09/16/24 10:17 Diagnostic Test (Pha) (Accu-Chek Comfort Curve T) 1 strip IQ4HR 09/16/24 00:00 09/16/24 11:58 Insulin Human Regular (InsuLIN R) IQ4HR SC 09/16/24 00:00 09/16/24 12:00 Dextrose 50 ml UD PRN IV Blood Sugar LESS THAN 60 09/15/24 21:15 Sodium Chloride 1,000 ml @ 60 mls/hr [id number] IV 09/15/24 21:15 09/15/24 22:59 Acetaminophen/ Hydrocodone Bitart ([place] 5/325MG Tab) 1 tab Q4HP PRN PO MODERATE PAIN (4-6 PAIN SCALE) 09/15/24 21:15 09/16/24 11:30 DC 09/16/24 02:10 Ondansetron HCl (Zofran) 4 mg Q4HP PRN IV NAUSEA / VOMITING 09/15/24 21:15 Docusate Sodium (Colace Capsule) 100 mg BIDPRN PRN PO FOR CONSTIPATION 09/15/24 21:15 Acetaminophen (Tylenol Tablet) 650 mg Q6HP PRN PO PAIN SCALE 1-3 OR TEMP>100.4 09/15/24 21:15 Atorvastatin Calcium (Lipitor) 10 mg HS PO 09/15/24 22:00 09/15/24 22:57 Aspirin 81 mg DAILY PO 09/16/24 10:00 09/16/24 10:17 Nitroglycerin (Ntrostat Sublingual) 0.4 mg Q5MINP PRN SL FOR CHEST PAIN 09/15/24 23:30 Morphine Sulfate 2 mg Q30M PRN IV FOR CHEST PAIN 09/15/24 23:30 Metronidazole 100 ml @ 100 mls/hr Q8HR IV 09/16/24 06:00 09/16/24 06:07 Ketorolac Tromethamine (Toradol Injection) 30 mg Q6HPRN PRN IV MODERATE PAIN (4-6 PAIN SCALE) 09/16/24 11:30 09/21/24 11:29 Review of Systems Constitutional: No: Fever, Chills, Sweats, Weakness, Malaise, Other Eyes: No: Pain, Vision change, Conjunctivae inflammation, Eyelid inflammation, Other, Redness ENT: No: Ear pain, Ear discharge, Nose pain, Nose discharge, Nose congestion, Mouth pain, Mouth swelling, Throat pain, Throat swelling, Other Respiratory: No: Cough, Dry, Shortness of breath, SOB with excertion, Wheezing, Hemoptysis, Pleuritic Pain, Sputum, Wheezing, Other Cardiovascular: No: Chest Pain, Palpitations, Orthopnea, Paroxysmal Noc. Dyspnea, Edema, Lt Headedness, Other Gastrointestinal: Abdominal Pain; No: Nausea, Vomiting, Diarrhea, Constipation, Melena, Hematochezia, Other Genitourinary: No Dysuria, No Frequency, No Incontinence, No Hematuria, No Retention; Other (Flank pain) Musculoskeletal: No: other, neck pain, shoulder pain, arm pain, back pain, hand pain, leg pain, foot pain Skin: No: Rash, Lesions, Jaundice, Bruising, Other Neurological: No: Weakness, Numbness, Incoordination, Change in speech, Confusion, Seizures, Other Allergies: Coded Allergies: NO KNOWN ALLERGIES (Unverified , 09/15/24) Medications Current Medications Medications Dose Ordered Sig/Annabelle Route Start Time Stop Time Status Last Admin Dose Admin Ceftriaxone Sodium 50 ml @ 100 mls/hr DAILY@09 IV 09/16/24 09:00 Tamsulosin HCl 0.4 mg QPM PO 09/16/24 18:00 Hydralazine HCl 10 mg Q6HP PRN IV 09/15/24 21:15 Metoprolol Tartrate 25 mg BID PO 09/15/24 22:00 09/15/24 22:57 25 MG Amlodipine Besylate 5 mg DAILY PO 09/16/24 10:00 Diagnostic Test (Pha) 1 strip IQ4HR 09/16/24 00:00 Insulin Human Regular IQ4HR SC 09/16/24 00:00 Dextrose 50 ml UD PRN IV 09/15/24 21:15 Sodium Chloride 1,000 ml @ 60 mls/hr [id number] IV 09/15/24 21:15 09/15/24 22:59 60 MLS/HR Acetaminophen/ Hydrocodone Bitart 1 tab Q4HP PRN PO 09/15/24 21:15 Ondansetron HCl 4 mg Q4HP PRN IV 09/15/24 21:15 Docusate Sodium 100 mg BIDPRN PRN PO 09/15/24 21:15 Acetaminophen 650 mg Q6HP PRN PO 09/15/24 21:15 Atorvastatin Calcium 10 mg HS PO 09/15/24 22:00 09/15/24 22:57 10 MG Aspirin 81 mg DAILY PO 09/16/24 10:00 Vital Signs Vital Signs Date Time Temp Pulse Resp B/P (MAP) Pulse Ox O2 Delivery O2 Flow Rate FiO2 09/16/24 11:59 160/83 09/16/24 11:54 65 09/16/24 08:35 98.3 17 93 98.3 09/16/24 08:00 Room Air* 0 21 Physical Exam Vital Signs Date Time Temp Pulse Resp B/P (MAP) Pulse Ox O2 Delivery O2 Flow Rate FiO2 09/15/24 23:00 98.0 106 18 157/82 (107) 95 98.0 09/15/24 18:50 Room Air 09/15/24 14:46 0 21 General Appearance: Alert, Oriented X3, Cooperative, No acute distress HEENT: Atraumatic, PERRLA, EOMI, Mucous membr. moist/pink Respiratory: Clear to auscultation, Normal air movement Cardiovascular: Regular rate, Normal S1, Normal S2, No murmurs Abdominal: Normal bowel sounds, Soft, No tenderness, No hepatospenomegaly, No masses Extremities: No clubbing, No cyanosis, No edema, Normal pulses, No tenderness/swelling Skin: No rashes, No breakdown, No significant lesion Neuro: Normal gait, Normal speech, Strength at 5/5 X4 ext, Normal tone, Sensation intact, Cranial nerves 3-12 NL, Reflexes 2+ Psych/Mental Status: Mental status NL, Mood NL Labs/Diagnostic Data Labs Test 09/16/24 11:49 09/16/24 06:46 09/15/24 16:12 09/15/24 13:25 Range/Units POC Glucose 175 H 70-106 mg/dl White Blood Count 15.6 H 4.4-10.8 10^3/uL Red Blood Count 5.20 4.5-5.90 10^6/uL Hemoglobin 15.2 13.5-17.5 g/dL Hematocrit 45.1 41.0-53.0 % Mean Corpuscular Volume 86.8 80.0-100.0 fL Mean Corpuscular Hemoglobin 29.3 28.0-32.0 pg Mean Corpuscular Hemoglobin Concent 33.8 32.0-36.0 g/dL Red Cell Distribution Width 14.2 11.8-14.3 % Platelet Count 324 140-450 10^3/uL Mean Platelet Volume 7.4 6.9-10.8 fL Neutrophils (%) (Auto) 67.7 37.0-80.0 % Lymphocytes (%) (Auto) 21.0 10.0-50.0 % Monocytes (%) (Auto) 10.2 0.0-12.0 % Eosinophils (%) (Auto) 0.6 0.0-7.0 % Basophils (%) (Auto) 0.5 0.0-2.0 % Neutrophils # (Auto) 10.5 H 1.6-8.6 10 ^3/uL Lymphocytes # (Auto) 3.3 0.4-5.4 10 ^3/uL Monocytes # (Auto) 1.6 H 0-1.3 10 ^3/uL Eosinophils # (Auto) 0.1 0-0.8 10 ^3/uL Basophils # (Auto) 0.1 0-0.2 10 ^3/uL Nucleated Red Blood Cells 0.0 % Sodium Level 146 #H 136-145 mmol/L Potassium Level 3.1 L 3.5-5.1 mmol/L Chloride Level 105 98-107 mmol/L Carbon Dioxide Level 28 20-31 mmol/L Anion Gap 13 5-15 Blood Urea Nitrogen 21 9-23 mg/dL Creatinine 1.60 H 0.700-1.30 mg/dL Glomerular Filtration Rate Calc 46 >90 mL/min BUN/Creatinine Ratio 13.1 10.0-20.0 Serum Glucose 67 #L 74-106 mg/dL Calcium Level 10.3 8.7-10.4 mg/dL Total Bilirubin 1.0 0.2-1.0 mg/dL Aspartate Amino Transferase (AST) 15 13-40 U/L Alanine Aminotransferase (ALT) 25 7-40 U/L Alkaline Phosphatase 147 H 46-116 U/L Total Protein 7.1 5.7-8.2 g/dL Albumin 4.3 3.2-4.8 g/dL Urine Color Light-yellow Yellow Urine Clarity Clear Clear Urine pH 6.5 5.0-9.0 Urine Specific [place] 1.031 1.001-1.035 Urine Protein Trace H Negative Urine Ketones 1+ H Negative Urine Blood Trace H Negative /uL Urine Nitrite Negative Negative Urine Bilirubin Negative Negative Urine Urobilinogen Normal Negative mg/dL Urine Leukocyte Esterase Negative Negative /uL Urine RBC 6 0 - 3 /hpf Urine Microscopic WBC 1 0-3 /HPF Urine Squamous Epithelial Cells None seen <5 /hpf Urine Bacteria None seen None Seen /hpf Urine Glucose 4+ H Normal mg/dL Lactic Acid Level 1.9 0.4-2.0 mmol/L Test 09/15/24 11:27 Range/Units Hemoglobin A1c > 14.0 H <5.7 % A1C Troponin I High Sensitivity 13 </=54 ng/L Lipase 43 12-53 U/L Assessment Right proximal ureteral calculus with mild hydronephrosis Plan/Recommendation Expulsive measures Tentative plans for inpatient lithotripsy with possible stent placement on 09/19/2024 Patient agrees with my recommendations. Plan discussed with: Patient, Other VIKY ALBERT MD September 16, 2024 13:40
[2024-09-16] MEDS: TAMSULOSIN HYDROCHLORIDE 0.4 MG CAP PO SCH (16:57)
[2024-09-17] VITALS (9 sets, daily range): BP systolic 109–172; BP diastolic 55–82; PULSE 62–94; RESP 16–18; TEMP 97.3–98.6; O2SAT 94–98
--- NOTE | 2024-09-17 10:31 | DVHPN2 ---
Reviewed: Care Plan, H&P, Labs, Medications, Previous Orders, Radiology Changes from previous H/P or p: No Changes Eyes: No Pain, No Vision change, No Conjunctivae inflammation, No Eyelid inflammation, No Other, No Redness ENT: No Ear pain, No Ear discharge, No Nose pain, No Nose discharge, No Nose congestion, No Mouth pain, No Mouth swelling, No Throat pain, No Throat swelling, No Other Cardiovascular: No Chest Pain, No Palpitations, No Orthopnea, No Paroxysmal Noc. Dyspnea, No Edema, No Lt Headedness, No Other Respiratory: No Cough, No Dry, No Shortness of breath, No SOB with excertion, No Wheezing, No Hemoptysis, No Pleuritic Pain, No Sputum, No Other Gastrointestinal: No Nausea, No Vomiting; Abdominal Pain; No Diarrhea, No Constipation, No Melena, No Hematochezia, No Other Genitourinary: No Dysuria, No Frequency, No Incontinence, No Hematuria, No Retention; Other (Flank pain) Musculoskeletal: No other, No neck pain, No shoulder pain, No arm pain, No back pain, No hand pain, No leg pain, No foot pain Skin: No Rash, No Lesions, No Jaundice, No Bruising, No Other Objective Vitals Vital Signs Date Time Temp Pulse Resp B/P (MAP) Pulse Ox O2 Delivery O2 Flow Rate FiO2 09/17/24 10:09 84 169/81 09/17/24 09:00 98.0 17 96 98.0 09/16/24 20:00 Room Air* 0 21 Intake/Output Intake and Output 09/17/24 07:00 Intake Total 2928 ml Balance 2928 ml Intake Oral 1898 ml IV Total 1030 ml # Voids 3 Medications Current Medications Medications Dose Ordered Sig/Annabelle Route Start Time Stop Time Status Last Admin Dose Admin Ceftriaxone Sodium 50 ml @ 100 mls/hr DAILY@09 IV 09/16/24 09:00 09/17/24 09:09 100 MLS/HR Tamsulosin HCl 0.4 mg QPM PO 09/16/24 18:00 09/16/24 16:57 0.4 MG Hydralazine HCl 10 mg Q6HP PRN IV 09/15/24 21:15 09/17/24 04:58 10 MG Metoprolol Tartrate 25 mg BID PO 09/15/24 22:00 09/17/24 09:10 25 MG Amlodipine Besylate 5 mg DAILY PO 09/16/24 10:00 09/17/24 09:10 5 MG Diagnostic Test (Pha) 1 strip IQ4HR 09/16/24 00:00 09/17/24 08:11 1 STRIP Insulin Human Regular IQ4HR SC 09/16/24 00:00 09/17/24 08:11 4 UNITS Dextrose 50 ml UD PRN IV 09/15/24 21:15 Sodium Chloride 1,000 ml @ 60 mls/hr [id number] IV 09/15/24 21:15 09/16/24 22:21 60 MLS/HR Ondansetron HCl 4 mg Q4HP PRN IV 09/15/24 21:15 Docusate Sodium 100 mg BIDPRN PRN PO 09/15/24 21:15 Acetaminophen 650 mg Q6HP PRN PO 09/15/24 21:15 Atorvastatin Calcium 10 mg HS PO 09/15/24 22:00 09/16/24 22:19 10 MG Aspirin 81 mg DAILY PO 09/16/24 10:00 09/17/24 09:10 81 MG Nitroglycerin 0.4 mg Q5MINP PRN SL 09/15/24 23:30 Morphine Sulfate 2 mg Q30M PRN IV 09/15/24 23:30 Metronidazole 100 ml @ 100 mls/hr Q8HR IV 09/16/24 06:00 09/17/24 05:55 100 MLS/HR Ketorolac Tromethamine 30 mg Q6HPRN PRN IV 09/16/24 11:30 09/21/24 11:29 09/16/24 13:33 30 MG Laboratory Results Laboratory Tests 09/16/24 06:46 Urinalysis Test 09/15/24 16:12 Urine Color Light-yellow (Yellow) Urine Clarity Clear (Clear) Urine pH 6.5 (5.0-9.0) Urine Specific [place] 1.031 (1.001-1.035) Urine Protein Trace (Negative) H Urine Ketones 1+ (Negative) H Urine Blood Trace /uL (Negative) H Urine Nitrite Negative (Negative) Urine Bilirubin Negative (Negative) Urine Urobilinogen Normal mg/dL (Negative) Urine Leukocyte Esterase Negative /uL (Negative) Urine RBC 6 /hpf (0 - 3) Urine Microscopic WBC 1 /HPF (0-3) Urine Squamous Epithelial Cells None seen /hpf (<5) Urine Bacteria None seen /hpf (None Seen) Urine Glucose 4+ mg/dL (Normal) H Microbiology Microbiology Date/Time Source Procedure Growth Status 09/15/24 21:45 Blood Blood Culture - Preliminary NO GROWTH AFTER 24 HOURS OF INCUBATION. Resulted Labs and/or images reviewed: Labs reviewed by me, Image(s) reviewed by me Assessment/Plan Assessment/Plan Acute right flank pain secondary to ureteral stone 4 mm proximal right ureteral stone with hydronephrosis: Consult for Urology Dr. Powell, planning for ESWL and stent placement on 09/19/2024 Sepsis secondary to possible urinary tract infection: Rocephin blood cultures negative urine cultures pending Systemic inflammatory response syndrome Acute hyperglycemia with blood sugar 622 on insulin aggressive sliding scale Uncontrolled diabetes type 2 A1c 14.0, diabetic education Hypertensive emergency with blood pressure 227/[address] Kinney Acute hypokalemia potassium 3.1: Replace potassium Gallstones Diverticulosis Enlarged prostate CT head negative Lipase normal 43 Time Spent 50 minutes Advanced care planning time 20 minutes Patient is full code Patient not stable for transfer to [place] Plan discussed with: Patient My Orders Orders - ROWAN VARGAS MD Procedure Category Date Status Time * Urology Consult CONS 09/16/24 Transmitted 11:15 Ketorolac Injection PHA 09/16/24 In Process (Toradol Injection) 11:30 Date of Service: September 17, 2024 Billing Provider: ROWAN VARGAS MD Common Visit Codes: [id number] INP/OBS CARE(HIGH) ROWAN VARGAS MD September 17, 2024 10:31
[2024-09-17] MEDS: cloNIDine HCL 0.1 MG TAB PO SCH (14:21)
[2024-09-17] MEDS: POTASSIUM CHL 20 Meq TABLET PO ONE (14:21)
--- NOTE | 2024-09-17 14:45 | DVHINCON2 ---
SOBEIDADERREK Wes [facility] 09/17/24 1445: Date Seen: September 17, [address] Roldan Navarrete Reason for Consultation Hypertensive urgency History of Present Illness This 69-year-old male presents in the ED with a chief complaint of right flank pain. In the emergency department the patient is found to be in hypertensive urgency for which Cardiology consult is initiated for BP management. The patient is currently taking amlodipine 5 mg daily and losartan 50 mg b.i.d. and clonidine. Upon assessment, current Systolic blood pressure in 150-160s, 12 lead ECG reveals normal sinus rhythm with abnormal T-waves on multiple leads. The patient denies dizziness, diaphoresis, chest pain, palpitations, shortness of breath, or dyspnea. The patient denies history of CAD, NE, or CHF. Signi ficant past medical history of type 2 diabetes and hypertension. Past Medical History As stated in HPI Past Surgical History Eyelid surgery Family History: Cerebrovascular accident (CVA) G8 MOTHER Diabetes mellitus G8 MOTHER Hypercholesterolemia G8 MOTHER Hypertension G8 MOTHER Family History Reviewed, non-contributory to the management of this case. Social History The patient lives at home, denies smoking, alcohol or illicit drugs abuse. Allergies: Coded Allergies: NO KNOWN ALLERGIES (Unverified , 09/15/24) Home Meds Reported Medications Metformin Hydrochloride (Metformin Hydrochloride E) 500 Mg Tab, 1 TAB PO BID 09/16/24 Atorvastatin Calcium (ATORVASTATIN CALCIUM) 20 Mg Tab, 1 TAB PO DAILY 09/16/24 Amlodipine Besylate (Amlodipine Besylate) 5 Mg Tab, 1 TAB PO DAILY 09/16/24 Losartan Potassium (Losartan Potassium) 50 Mg Tab, 1 TAB PO BID 09/16/24 Current Medications Current Medications Medications (Trade) Dose Ordered Sig/Annabelle Route PRN Reason Start Time Stop Time Status Last Admin Tamsulosin HCl (Flomax) 0.4 mg QPM PO 09/16/24 18:00 09/16/24 16:57 Clonidine HCl (Catapres Tablet) 0.2 mg TID PO 09/17/24 14:00 09/17/24 14:21 Review of Systems Constitutional: No symptom reported Ears, Nose, & Throat: No symptom reported Eyes: No symptom reported Neurological: No symptoms reported Pulmonary/Respiratory: No symptom reported Cardiovascular: No symptom reported Gastrointestinal: No symptom reported Genitourinary: No symptom reported Musculoskeletal: No symptom reported Skin: No symptom reported Psychiatric: No symptom reported Endocrine: No symptom reported Hematologic/Lymphatic: No symptom reported Vital Signs Vital Signs Date Time Temp Pulse Resp B/P (MAP) Pulse Ox O2 Delivery O2 Flow Rate FiO2 09/17/24 14:21 168/81 09/17/24 13:00 97.3 83 17 95 97.3 09/17/24 08:00 Room Air* 0 21 Physical Exam INITIAL VITAL SIGNS: Reviewed by me GENERAL: Alert and interactive. No acute distress. HEAD: Head is normocephalic and atraumatic. EYES: EOMI, PERRL. No scleral icterus. No conjunctival injection. ENT: Moist mucous membranes. NECK: Supple, No masses, Full range of motion. RESPIRATORY: No tachypnea. Clear breath sounds bilaterally. No wheezing, rales, rhonchi. CV: Regular rate and rhythm. No murmurs, rubs, or gallops. GI/: Active bowel sounds, soft, nondistended, nontender. No guarding. No rebound. No masses. No CVA tenderness. INTEGUMENTARY: Warm and dry. No obvious rashes. NEUROLOGIC: Alert and oriented. Face is symmetric. Speech is normal. Moves all extremities equally. Labs/Diagnostic Data Labs Test 09/17/24 11:09 09/16/24 06:46 09/15/24 16:12 09/15/24 13:25 Range/Units POC Glucose 253 H 70-106 mg/dl White Blood Count 15.6 H 4.4-10.8 10^3/uL Red Blood Count 5.20 4.5-5.90 10^6/uL Hemoglobin 15.2 13.5-17.5 g/dL Hematocrit 45.1 41.0-53.0 % Mean Corpuscular Volume 86.8 80.0-100.0 fL Mean Corpuscular Hemoglobin 29.3 28.0-32.0 pg Mean Corpuscular Hemoglobin Concent 33.8 32.0-36.0 g/dL Red Cell Distribution Width 14.2 11.8-14.3 % Platelet Count 324 140-450 10^3/uL Mean Platelet Volume 7.4 6.9-10.8 fL Neutrophils (%) (Auto) 67.7 37.0-80.0 % Lymphocytes (%) (Auto) 21.0 10.0-50.0 % Monocytes (%) (Auto) 10.2 0.0-12.0 % Eosinophils (%) (Auto) 0.6 0.0-7.0 % Basophils (%) (Auto) 0.5 0.0-2.0 % Neutrophils # (Auto) 10.5 H 1.6-8.6 10 ^3/uL Lymphocytes # (Auto) 3.3 0.4-5.4 10 ^3/uL Monocytes # (Auto) 1.6 H 0-1.3 10 ^3/uL Eosinophils # (Auto) 0.1 0-0.8 10 ^3/uL Basophils # (Auto) 0.1 0-0.2 10 ^3/uL Nucleated Red Blood Cells 0.0 % Sodium Level 146 #H 136-145 mmol/L Potassium Level 3.1 L 3.5-5.1 mmol/L Chloride Level 105 98-107 mmol/L Carbon Dioxide Level 28 20-31 mmol/L Anion Gap 13 5-15 Blood Urea Nitrogen 21 9-23 mg/dL Creatinine 1.60 H 0.700-1.30 mg/dL Glomerular Filtration Rate Calc 46 >90 mL/min BUN/Creatinine Ratio 13.1 10.0-20.0 Serum Glucose 67 #L 74-106 mg/dL Calcium Level 10.3 8.7-10.4 mg/dL Total Bilirubin 1.0 0.2-1.0 mg/dL Aspartate Amino Transferase (AST) 15 13-40 U/L Alanine Aminotransferase (ALT) 25 7-40 U/L Alkaline Phosphatase 147 H 46-116 U/L Total Protein 7.1 5.7-8.2 g/dL Albumin 4.3 3.2-4.8 g/dL Urine Color Light-yellow Yellow Urine Clarity Clear Clear Urine pH 6.5 5.0-9.0 Urine Specific [place] 1.031 1.001-1.035 Urine Protein Trace H Negative Urine Ketones 1+ H Negative Urine Blood Trace H Negative /uL Urine Nitrite Negative Negative Urine Bilirubin Negative Negative Urine Urobilinogen Normal Negative mg/dL Urine Leukocyte Esterase Negative Negative /uL Urine RBC 6 0 - 3 /hpf Urine Microscopic WBC 1 0-3 /HPF Urine Squamous Epithelial Cells None seen <5 /hpf Urine Bacteria None seen None Seen /hpf Urine Glucose 4+ H Normal mg/dL Lactic Acid Level 1.9 0.4-2.0 mmol/L Test 09/15/24 11:27 Range/Units Hemoglobin A1c > 14.0 H <5.7 % A1C Troponin I High Sensitivity 13 </=54 ng/L Lipase 43 12-53 U/L Microbiology Date/Time Source Procedure Growth Status 09/15/24 21:45 Blood Blood Culture - Preliminary NO GROWTH AFTER 24 HOURS OF INCUBATION. Resulted Assessment Accelerated hypertension Uncontrolled diabetes with A1c >14 Hypertension Right proximal ureteral calculus with mild hydronephrosis Plan/Recommendation (Dr. Dennis ): * Transthoracic echocardiogram to evaluate cardiac function * Aggressive BP control * Repeat EKG * Monitor electrolytes and replete as needed * Close cardiac surveillance * Diabetic management per hospitalist team This medical document was created using an electronic medical record system with voice recognition software and computerized dictation system. Although this document has been carefully reviewed, there might still be some phonetic and typographical errors. Occasional wrong-word or ``sound-alike substitutions may have occurred due to the inherent limitations of voice recognition software. These areas are purely typographical due to imperfections of the software programs and do not reflect any compromise in the patient's medical care. Please read the chart carefully and recognize, using context, where these substitutions have occurred. Plan discussed with: Patient Plan discussed with: Patient NYHA Physical activity limitations: NA Date of Service: September 17, 2024 Billing Provider: KEATON DENNIS MD Cardiology Common Codes: NOT BILLABLE Cardiology Consultation Codes: [id number] CONSULT <45MIN KEATON DENNIS MD 09/18/24 1031: Family History: Cerebrovascular accident (CVA) G8 MOTHER Diabetes mellitus G8 MOTHER Hypercholesterolemia G8 MOTHER Hypertension G8 MOTHER Allergies: Coded Allergies: NO KNOWN ALLERGIES (Unverified , 09/15/24) Home Meds Reported Medications Metformin Hydrochloride (Metformin Hydrochloride E) 500 Mg Tab, 1 TAB PO BID 09/16/24 Atorvastatin Calcium (ATORVASTATIN CALCIUM) 20 Mg Tab, 1 TAB PO DAILY 09/16/24 Amlodipine Besylate (Amlodipine Besylate) 5 Mg Tab, 1 TAB PO DAILY 09/16/24 Losartan Potassium (Losartan Potassium) 50 Mg Tab, 1 TAB PO BID 09/16/24 Plan/Recommendation agree with KILN SETTER assessment and plan ecg reviewed, abnormal no major symptoms given totally uncontrolled DM, total non compiance of patient, and severe HTn pt is very high risk for future CV events Plan discussed with: Patient DERREK VIDALES Wes TOWNSEND September 17, 2024 14:45 KEATON DENNIS MD September 18, 2024 10:31
[2024-09-17 15:28] LABS: Chloride 103 mmol/L (98-107); Sodium 139 mmol/L (136-145)
[2024-09-17 15:29] LABS: Anion Gap 11 (5-15); Calcium 9.7 mg/dL (8.7-10.4); Carbon Dioxide 25 mmol/L (20-31)
[2024-09-17 15:34] LABS: BUN/Creatinine Ratio 13.5 (10.0-20.0); Blood Urea Nitrogen 21 mg/dL (9-23); Glucose 169 mg/dL (74-106); Triglycerides 94 mg/dL (< 150)
[2024-09-17 15:35] LABS: Magnesium 1.7 mg/dL (1.6-2.6)
[2024-09-17 15:46] LABS: Cholesterol 219 mg/dL (< 200); HDL Cholesterol 79 mg/dL (40-59); LDL Cholesterol 119 mg/dL (< 100)
[2024-09-17] MEDS: MAGNESIUM SULFATE 1GM/100ML 100 ML IV ONE (17:13)
--- NOTE | 2024-09-17 18:24 | DVH ---
CHEST RADIOGRAPH Indication: Hypertensive urgency Technique: Single frontal view of the chest was obtained Comparison: None FINDINGS: Lines and Tubes: None Lungs: No focal consolidation. Pleura: No effusion. No pneumothorax. Cardiomediastinal contours: Unremarkable Bones: No acute osseous abnormality. IMPRESSION: 1. No acute cardiopulmonary disease. 2. No findings of congestive failure.
[2024-09-18 01:00] VITALS: BP 128/75; PULSE 60; RESP 18; TEMP 98.2; O2SAT 96
[2024-09-18 05:00] VITALS: BP 132/69; PULSE 58; RESP 18; TEMP 98; O2SAT 96
[2024-09-18 08:00] VITALS: PULSE 60; PULSE 70; RESP 18; O2SAT 97
[2024-09-18 09:12] VITALS: BP 163/77; PULSE 55; RESP 18; TEMP 97.8; O2SAT 97
--- NOTE | 2024-09-18 10:26 | DVHSR ---
APPROVED REPORT EXAM: Two-dimensional and M-mode echocardiogram with Doppler and color Doppler. Blood Pressure: 168/81 mmHg INDICATION Accelerated hypertension RISK FACTORS Height: 5'7", Weight: 162 DIMENSIONS LVDd4.1 (3.8-5.7cm)LA (2D)3.8 (1.9-4.0cm)Aortic Root3.7 (2.0-3.7cm) LVDs2.9 (2.5-4.0cm)LA (MM) (1.9-4.0cm)Aortic Cusp Exc1.7 (1.5-2.0cm) EF (%) 55.0 (55-70%)Rt. Atrium4.5 (1.9-4.0cm)Asc. Aorta cm IVSd1.1 (0.7-1.1cm)RV (D)4.2 (1.8-2.4cm) PWd1.2 (0.7-1.1cm) Mitral Valve MitralMitral Stenosis E wave0.65m/sMV Mean GR.mmHg A wave1.09m/sMV Peak GR.mmHg E/A ratio0.62D MVAcm2 DECEL [id number] 1/2 Timems Aortic Valve Aortic ValveAortic Stenosis V10.88m/Rojelio Mean GR.4mmHg V21.48m/Rojelio Peak GR.9mmHg LVOT Diameter1.8 (1.8-2.4cm)Doppler AVA1.51cm2 AI P 1/2 [id number] Pulmonic Valve V20.96m/s Conclusion lvef 60% by visual estimate mild LVH normal rv function left atrium enlarged no severe valve abnormalities noted mild to moderate aortic regurg
--- NOTE | 2024-09-18 11:17 | DVHPN2 ---
Progress Note - Dictate Date Seen: September 18, 2024 Has the PT tested + for MRSA If YES, has PT been informed?: No Medical Necessity Reason Pt with a Central, PICC or Fol: No Medical Necessity Reason 4 mm right proximal ureteral stone Subjective Patient reports no pain at this time. He is agreeable to being discharged and follow up with [facility] service. vital signs Vital Sign Date Time Temp Pulse Resp B/P (MAP) Pulse Ox O2 Delivery O2 Flow Rate FiO2 09/18/24 09:34 162/73 09/18/24 09:33 61 09/18/24 09:12 97.8 18 97 97.8 09/18/24 08:00 Room Air* 0 21 Total Intake and Output 09/17/24 09/17/24 09/18/24 15:00 23:00 07:00 Intake Total 50 ml 900 ml 1700 ml Balance 50 ml 900 ml 1700 ml medications Current Medications Medications Dose Ordered Sig/Annabelle Route Start Time Stop Time Status Last Admin Dose Admin Ceftriaxone Sodium 50 ml @ 100 mls/hr DAILY@09 IV 09/16/24 09:00 09/18/24 08:28 100 MLS/HR Tamsulosin HCl 0.4 mg QPM PO 09/16/24 18:00 09/17/24 17:13 0.4 MG Hydralazine HCl 10 mg Q6HP PRN IV 09/15/24 21:15 09/17/24 04:58 10 MG Metoprolol Tartrate 25 mg BID PO 09/15/24 22:00 09/18/24 09:33 25 MG Amlodipine Besylate 5 mg DAILY PO 09/16/24 10:00 09/18/24 09:34 5 MG Diagnostic Test (Pha) 1 strip IQ4HR 09/16/24 00:00 09/18/24 08:27 1 STRIP Insulin Human Regular IQ4HR SC 09/16/24 00:00 09/18/24 08:27 4 UNITS Dextrose 50 ml UD PRN IV 09/15/24 21:15 Sodium Chloride 1,000 ml @ 60 mls/hr [id number] IV 09/15/24 21:15 09/18/24 03:52 60 MLS/HR Ondansetron HCl 4 mg Q4HP PRN IV 09/15/24 21:15 Docusate Sodium 100 mg BIDPRN PRN PO 09/15/24 21:15 Acetaminophen 650 mg Q6HP PRN PO 09/15/24 21:15 Atorvastatin Calcium 10 mg HS PO 09/15/24 22:00 09/17/24 21:43 10 MG Aspirin 81 mg DAILY PO 09/16/24 10:00 09/18/24 09:34 81 MG Nitroglycerin 0.4 mg Q5MINP PRN SL 09/15/24 23:30 Morphine Sulfate 2 mg Q30M PRN IV 09/15/24 23:30 Metronidazole 100 ml @ 100 mls/hr Q8HR IV 09/16/24 06:00 09/18/24 05:32 100 MLS/HR Ketorolac Tromethamine 30 mg Q6HPRN PRN IV 09/16/24 11:30 09/21/24 11:29 09/16/24 13:33 30 MG Clonidine HCl 0.2 mg TID PO 09/17/24 14:00 09/18/24 05:33 0.2 MG objective NAD laboratory and microbiology Laboratory Tests 09/17/24 15:10 09/16/24 06:46 Test 09/17/24 15:10 Range/Units Serum Glucose 169 #H 74-106 mg/dL Problem List Right proximal ureteral stone Mild Azotemia with creatinine 1.56 Assessment/Plan Right proximal ureteral calculus with mild hydronephrosis Will need to hold ASA x 5 days prior to ESWL. Tentative inpatient ESWL will be 09/22/24 I spoke with Patient. He is not having any pain now. He is agreeable to being discharged and following up with [facility] for further urological care. Plan discussed with: Patient, Other Total Time (mins): 15 VIKY ALBERT MD September 18, 2024 11:17
[2024-09-18] MEDS ORDERED: CIPR-173 PO (12:12)
[2024-09-18] MEDS ORDERED: TAMS-35 PO (12:12)
--- NOTE | 2024-09-18 12:15 | DVHPN2 ---
Reviewed: Care Plan, H&P, Labs, Medications, Previous Orders, Radiology Changes from previous H/P or p: No Changes Eyes: No Pain, No Vision change, No Conjunctivae inflammation, No Eyelid inflammation, No Other, No Redness ENT: No Ear pain, No Ear discharge, No Nose pain, No Nose discharge, No Nose congestion, No Mouth pain, No Mouth swelling, No Throat pain, No Throat swelling, No Other Cardiovascular: No Chest Pain, No Palpitations, No Orthopnea, No Paroxysmal Noc. Dyspnea, No Edema, No Lt Headedness, No Other Respiratory: No Cough, No Dry, No Shortness of breath, No SOB with excertion, No Wheezing, No Hemoptysis, No Pleuritic Pain, No Sputum, No Other Gastrointestinal: No Nausea, No Vomiting; Abdominal Pain; No Diarrhea, No Constipation, No Melena, No Hematochezia, No Other Genitourinary: No Dysuria, No Frequency, No Incontinence, No Hematuria, No Retention; Other (Flank pain) Musculoskeletal: No other, No neck pain, No shoulder pain, No arm pain, No back pain, No hand pain, No leg pain, No foot pain Skin: No Rash, No Lesions, No Jaundice, No Bruising, No Other Objective Vitals Vital Signs Date Time Temp Pulse Resp B/P (MAP) Pulse Ox O2 Delivery O2 Flow Rate FiO2 09/18/24 09:34 162/73 09/18/24 09:33 61 09/18/24 09:12 97.8 18 97 97.8 09/18/24 08:00 Room Air* 0 21 Intake/Output Intake and Output 09/18/24 07:00 Intake Total 2650 ml Balance 2650 ml Intake Oral 1200 ml IV Total 1450 ml # Voids 6 # Bowel Movements 1 Medications Current Medications Medications Dose Ordered Sig/Annabelle Route Start Time Stop Time Status Last Admin Dose Admin Ceftriaxone Sodium 50 ml @ 100 mls/hr DAILY@09 IV 09/16/24 09:00 09/18/24 08:28 100 MLS/HR Tamsulosin HCl 0.4 mg QPM PO 09/16/24 18:00 09/17/24 17:13 0.4 MG Hydralazine HCl 10 mg Q6HP PRN IV 09/15/24 21:15 09/17/24 04:58 10 MG Metoprolol Tartrate 25 mg BID PO 09/15/24 22:00 09/18/24 09:33 25 MG Amlodipine Besylate 5 mg DAILY PO 09/16/24 10:00 09/18/24 09:34 5 MG Diagnostic Test (Pha) 1 strip IQ4HR 09/16/24 00:00 09/18/24 08:27 1 STRIP Insulin Human Regular IQ4HR SC 09/16/24 00:00 09/18/24 08:27 4 UNITS Dextrose 50 ml UD PRN IV 09/15/24 21:15 Sodium Chloride 1,000 ml @ 60 mls/hr [id number] IV 09/15/24 21:15 09/18/24 03:52 60 MLS/HR Ondansetron HCl 4 mg Q4HP PRN IV 09/15/24 21:15 Docusate Sodium 100 mg BIDPRN PRN PO 09/15/24 21:15 Acetaminophen 650 mg Q6HP PRN PO 09/15/24 21:15 Atorvastatin Calcium 10 mg HS PO 09/15/24 22:00 09/17/24 21:43 10 MG Nitroglycerin 0.4 mg Q5MINP PRN SL 09/15/24 23:30 Morphine Sulfate 2 mg Q30M PRN IV 09/15/24 23:30 Metronidazole 100 ml @ 100 mls/hr Q8HR IV 09/16/24 06:00 09/18/24 05:32 100 MLS/HR Ketorolac Tromethamine 30 mg Q6HPRN PRN IV 09/16/24 11:30 09/21/24 11:29 09/16/24 13:33 30 MG Clonidine HCl 0.2 mg TID PO 09/17/24 14:00 09/18/24 05:33 0.2 MG Laboratory Results Laboratory Tests 09/16/24 06:46 09/17/24 15:10 Chemistry Test 09/17/24 15:10 Calcium Level 9.7 mg/dL (8.7-10.4) Magnesium Level 1.7 mg/dL (1.6-2.6) Lipid panel Test 09/17/24 15:10 Cholesterol Level 219 mg/dL (< 200) H HDL Cholesterol 79 mg/dL (40-59) H Triglycerides Level 94 mg/dL (< 150) HgA1c, TSH Test 09/17/24 15:10 Thyroid Stimulating Hormone (TSH) 0.62 uIU/mL (0.55-4.78) Urinalysis Test 09/15/24 16:12 Urine Color Light-yellow (Yellow) Urine Clarity Clear (Clear) Urine pH 6.5 (5.0-9.0) Urine Specific [place] 1.031 (1.001-1.035) Urine Protein Trace (Negative) H Urine Ketones 1+ (Negative) H Urine Blood Trace /uL (Negative) H Urine Nitrite Negative (Negative) Urine Bilirubin Negative (Negative) Urine Urobilinogen Normal mg/dL (Negative) Urine Leukocyte Esterase Negative /uL (Negative) Urine RBC 6 /hpf (0 - 3) Urine Microscopic WBC 1 /HPF (0-3) Urine Squamous Epithelial Cells None seen /hpf (<5) Urine Bacteria None seen /hpf (None Seen) Urine Glucose 4+ mg/dL (Normal) H Microbiology Microbiology Date/Time Source Procedure Growth Status 09/15/24 21:45 Blood Blood Culture - Preliminary NO GROWTH AFTER 48 HOURS OF INCUBATION. Resulted Labs and/or images reviewed: Labs reviewed by me, Image(s) reviewed by me Assessment/Plan Assessment/Plan Acute right flank pain secondary to ureteral stone 4 mm proximal right ureteral stone with hydronephrosis: Dr. Chen advised the patient has to be off of aspirin for five days before ESWL, the patient wants get it done by his urologist at [place] Sepsis secondary to possible urinary tract infection: Rocephin blood cultures negative urine cultures pending Systemic inflammatory response syndrome Acute hyperglycemia with blood sugar 622 on insulin aggressive sliding scale Uncontrolled diabetes type 2 A1c 14.0, diabetic education Hypertensive emergency with blood pressure 227/[address] Kinney appreciated, ejection fraction 60 percent, blood pressure now under control Acute hypokalemia potassium 3.1: Replace potassium Gallstones Diverticulosis Enlarged prostate CT head negative Patient Is much better with no pain and wants to go home Plan discussed with: Patient Date of Service: September 18, 2024 Billing Provider: ROWAN VARGAS MD Common Visit Codes: [id number] INP/OBS CARE(HIGH) ROWAN VARGAS MD September 18, 2024 12:15
--- NOTE | 2024-09-18 12:19 | DVHDS2 ---
Discharge Summary Date of Admission September 15, 2024 at 23:29 Date of Discharge: September 18, 2024 Admitting Diagnosis Right flank pain Wounds: None Labs/Diagnostic Data: Laboratory Results Test 09/18/24 08:10 09/17/24 15:10 09/16/24 06:46 09/15/24 16:12 POC Glucose 198 mg/dl (70-106) Sodium Level 139 mmol/L (136-145) Potassium Level 4.0 mmol/L (3.5-5.1) Chloride Level 103 mmol/L (98-107) Carbon Dioxide Level 25 mmol/L (20-31) Anion Gap 11 (5-15) Blood Urea Nitrogen 21 mg/dL (9-23) Creatinine 1.56 mg/dL (0.700-1.30) Glomerular Filtration Rate Calc 47 mL/min (>90) BUN/Creatinine Ratio 13.5 (10.0-20.0) Serum Glucose 169 mg/dL (74-106) Calcium Level 9.7 mg/dL (8.7-10.4) Magnesium Level 1.7 mg/dL (1.6-2.6) Triglycerides Level 94 mg/dL (< 150) Cholesterol Level 219 mg/dL (< 200) LDL Cholesterol 119 mg/dL (< 100) HDL Cholesterol 79 mg/dL (40-59) Thyroid Stimulating Hormone (TSH) 0.62 uIU/mL (0.55-4.78) White Blood Count 15.6 10^3/uL (4.4-10.8) Red Blood Count 5.20 10^6/uL (4.5-5.90) Hemoglobin 15.2 g/dL (13.5-17.5) Hematocrit 45.1 % (41.0-53.0) Mean Corpuscular Volume 86.8 fL (80.0-100.0) Mean Corpuscular Hemoglobin 29.3 pg (28.0-32.0) Mean Corpuscular Hemoglobin Concent 33.8 g/dL (32.0-36.0) Red Cell Distribution Width 14.2 % (11.8-14.3) Platelet Count 324 10^3/uL (140-450) Mean Platelet Volume 7.4 fL (6.9-10.8) Neutrophils (%) (Auto) 67.7 % (37.0-80.0) Lymphocytes (%) (Auto) 21.0 % (10.0-50.0) Monocytes (%) (Auto) 10.2 % (0.0-12.0) Eosinophils (%) (Auto) 0.6 % (0.0-7.0) Basophils (%) (Auto) 0.5 % (0.0-2.0) Neutrophils # (Auto) 10.5 10 ^3/uL (1.6-8.6) Lymphocytes # (Auto) 3.3 10 ^3/uL (0.4-5.4) Monocytes # (Auto) 1.6 10 ^3/uL (0-1.3) Eosinophils # (Auto) 0.1 10 ^3/uL (0-0.8) Basophils # (Auto) 0.1 10 ^3/uL (0-0.2) Nucleated Red Blood Cells 0.0 % Total Bilirubin 1.0 mg/dL (0.2-1.0) Aspartate Amino Transferase (AST) 15 U/L (13-40) Alanine Aminotransferase (ALT) 25 U/L (7-40) Alkaline Phosphatase 147 U/L (46-116) Total Protein 7.1 g/dL (5.7-8.2) Albumin 4.3 g/dL (3.2-4.8) Urine Color Light-yellow (Yellow) Urine Clarity Clear (Clear) Urine pH 6.5 (5.0-9.0) Urine Specific [place] 1.031 (1.001-1.035) Urine Protein Trace (Negative) Urine Ketones 1+ (Negative) Urine Blood Trace /uL (Negative) Urine Nitrite Negative (Negative) Urine Bilirubin Negative (Negative) Urine Urobilinogen Normal mg/dL (Negative) Urine Leukocyte Esterase Negative /uL (Negative) Urine RBC 6 /hpf (0 - 3) Urine Microscopic WBC 1 /HPF (0-3) Urine Squamous Epithelial Cells None seen /hpf (<5) Urine Bacteria None seen /hpf (None Seen) Urine Glucose 4+ mg/dL (Normal) Test 09/15/24 13:25 09/15/24 11:27 Lactic Acid Level 1.9 mmol/L (0.4-2.0) Hemoglobin A1c > 14.0 % A1C (<5.7) Troponin I High Sensitivity 13 ng/L (</=54) Lipase 43 U/L (12-53) Other Laboratory Tests 09/17/24 15:10 09/16/24 06:46 Brief Hx & Hospital Course: 69-year-old male with a history of hypertension diabetes came in complaining of right flank pain. Found to have 4 mm proximal right ureteral stone with hydronephrosis seen by Urology Dr. Powell. Advised ESWL. He wants the patient to be off of aspirin for five days before the procedure. But the patient chose to have the procedure done at [place] by the [place]. Patient was high systolic 200 medications were adjusted seen by Cardiology Dr. Kinney echo 60 percent ejection fraction patient has a history of gallstones diverticulosis enlarged prostate. Blood pressure now under control being discharged home. Prescription for Flomax and Cipro transmitted to pharmacy. Patient does not want any pain medication. Consults/Reason for consult Cardiology Dr. Kinney Urology Dr. Powell Operations or Procedures CT abdomen pelvis without contrast Echocardiogram Condition at Discharge: Fair Final Diagnosis/Problems List Acute right flank pain secondary to ureteral stone 4 mm proximal right ureteral stone with hydronephrosis: Dr. Chen advised the patient has to be off of aspirin for five days before ESWL, the patient wants get it done by his urologist at [place] Sepsis secondary to possible urinary tract infection: Rocephin blood cultures negative urine cultures pending Systemic inflammatory response syndrome Acute hyperglycemia with blood sugar 622 on insulin aggressive sliding scale Uncontrolled diabetes type 2 A1c 14.0, diabetic education Hypertensive emergency with blood pressure 227/[address] Nirmal murray, ejection fraction 60 percent, blood pressure now under control Acute hypokalemia potassium 3.1: Replace potassium Gallstones Diverticulosis Enlarged prostate CT head negative Discharge Disposition: Home Discharge Instruct/Medications Diet: Cardiac 2g Na,low cholest Activity: Light activity Follow Up/Referral: Follow up with your primary Dr at [place] for referral to [place] urologist for right ureteral stone treatment Resume all previous home meds Medications: Cipro Flomax Transmitted to [place] pharmacy Patient does not want any pain medication 39 (Time taken for discharge summary 39 minutes) Discharge Statement: "Patient was advised to return to the ER or call 911 if any headaches, dizziness, shortness of breath, chest pain, abdominal pain, bleeding, fevers, or worsening of medical condition. Patient was counseled about treatment plan, medications, possible side effects, patientverbalized understanding. All questions were answered to the best of my ability. This discharge took greater then 30 minutes in planning, reviewing documentation, counseling the patient, and discussing with other team members." ASSESSMENT ASSESSMENT Hospital Course Uneventful Assessment Acute right flank pain secondary to ureteral stone 4 mm proximal right ureteral stone with hydronephrosis: Dr. Chen advised the patient has to be off of aspirin for five days before ESWL, the patient wants get it done by his urologist at [place] Sepsis secondary to possible urinary tract infection: Rocephin blood cultures negative urine cultures pending Systemic inflammatory response syndrome Acute hyperglycemia with blood sugar 622 on insulin aggressive sliding scale Uncontrolled diabetes type 2 A1c 14.0, diabetic education Hypertensive emergency with blood pressure 227/[address] Nirmal murray, ejection fraction 60 percent, blood pressure now under control Acute hypokalemia potassium 3.1: Replace potassium Gallstones Diverticulosis Enlarged prostate CT head negative Date of Service: September 18, 2024 Billing Provider: ROWAN VARGAS MD Common Visit Codes: [id number] DISCH DAY >30min ROWAN VARGAS MD September 18, 2024 12:19
[2024-09-18 13:00] VITALS: BP 134/77; PULSE 59; RESP 18; TEMP 97.5; O2SAT 95
[2024-09-18 14:37] VITALS: BP 105/58; PULSE 59; RESP 18; TEMP 97.5; O2SAT 95
--- NOTE | 2024-09-19 09:36 | ECG ---
[facility] Test Date: 2024-09-17 Test Time: 17:31:56 Pat Name: ANNABELLE MORALES Department: Room: 0292T A Gender: M K 11 Principal: RN : 1955 Requested By: DERREK VIDALES Order Number: [id number] Reading MD: Measurements Intervals [place] Rate: 65 P: 49 LA: 193 QRS: -5 QRSD: 79 T: -75 QT: 438 QTc: 456 Interpretive Statements Sinus rhythm Anterior infarct, old Borderline repolarization abnormality Baseline wander in lead(s) V4 Please click the below link to view image of tracing.
== END 2024-09-18 15:30 | disposition home or self-care (01) | DRG 872 ==
LOC: ER 11:05 → OVERFLOW 23:29 → TELE-WESTW 09-16 01:40
PROVIDERS: ADMIT Family Medicine; ATTEND Family Medicine
DX: A41.9 Sepsis, unspecified organism (principal); I16.1 Hypertensive emergency; N17.9 Acute kidney failure, unspecified; N13.2 Hydronephrosis with renal and ureteral calculous obstruction; N39.0 Urinary tract infection, site not specified; K80.20 Calculus of gallbladder without cholecystitis without obstruction; E11.65 Type 2 diabetes mellitus with hyperglycemia; E87.6 Hypokalemia; N40.1 Benign prostatic hyperplasia with lower urinary tract symptoms; I10 Essential (primary) hypertension; K57.30 Diverticulosis of large intestine without perforation or abscess without bleeding; Z82.3 Family history of stroke; Z83.3 Family history of diabetes mellitus; Z82.49 Family history of ischemic heart disease and other diseases of the circulatory system; Z79.84 Long term (current) use of oral hypoglycemic drugs; Z79.899 Other long term (current) drug therapy
CPT/HCPCS: 36415; 70450; 71045; 74176; 80048; 80053; 80061; 81001; 82962; 83036; 83605; 83690; 83735; 84443; 84484; 85025; 87040; 93005; 93306; 96365; 96375; 99291; G0378; J1815; J1885; J2405; J3490

== ENCOUNTER 2025-05-10 14:05 | Inpatient (IN) | payer OTHER ==
[~2025-05-10] VITALS: Ht 170.2 cm; Wt 75.5 kg
[~2025-05-10 14:05] MED LIST: AMLO1TAB22 PO; ATOR20TA50 PO; CIPR-173 PO; LOSA-534 PO; METF-762 PO; TAMS-35 PO
[2025-05-10 14:11] VITALS: PULSE 130; RESP 27; O2SAT 100
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
--- NOTE | 2025-05-10 15:15 | DVH ---
CHEST RADIOGRAPH INDICATION: sob TECHNIQUE: XY CHEST PORTABLE COMPARISON: None FINDINGS: The cardiac silhouette is borderline enlarged. The lungs demonstrate bilateral patchy airspace opacities. The pulmonary vasculature is prominent. There is no pleural effusion. There is no pneumothorax. IMPRESSION: Pulmonary vascular congestion and bilateral patchy airspace opacities.
[2025-05-10 15:23] LABS: Hematocrit 45.5 % (41.0-53.0); Hemoglobin 14.9 g/dL (13.5-17.5); Mean Corpuscular Hemoglobin 28.9 pg (28.0-32.0); Mean Corpuscular Volume 88.3 fL (80.0-100.0); Nucleated Red Blood Cells % 0.1 %
[2025-05-10] MEDS: CLINDAMYCIN 600MG IV 50 ML IV ONE (15:23)
[2025-05-10 15:32] LABS: Anion Gap 17 (5-15); Carbon Dioxide 21 mmol/L (20-31); Chloride 102 mmol/L (98-107); Potassium 4.4 mmol/L (3.5-5.1); Sodium 140 mmol/L (136-145)
[2025-05-10 15:33] LABS: Calcium 9.5 mg/dL (8.7-10.4)
[2025-05-10 15:38] LABS: Blood Urea Nitrogen 14 mg/dL (9-23)
[2025-05-10 15:40] LABS: BUN/Creatinine Ratio 10.4 (10.0-20.0); Glucose 308 mg/dL (74-106)
[2025-05-10] MEDS: PIPERACILLIN-TAZOB 3.375GM 100 ML IV ONE (16:06)
--- NOTE | 2025-05-10 16:14 | ECG ---
[facility] Test Date: 2025-05-10 Test Time: 15:49:58 Pat Name: ANNABELLE MORALES Department: [facility] ED Room: 0216T Gender: M Cloth Presser: irving : 1955 Requested By: MARTITA DUVAL Order Number: [id number] Reading MD: Mando Perales Measurements Intervals [place] Rate: 94 P: 5 [place]: 183 QRS: 31 QRSD: 76 T: 48 QT: 392 QTc: 491 Interpretive Statements Sinus rhythm Probable anteroseptal infarct, recent Electronically Signed On 05-12-2025 10:32:17 PST by Mando Perales Please click the below link to view image of tracing.
[2025-05-10] MEDS: SODIUM CHLORIDE 0.9% 2,000 ML IV ONE (17:21)
[2025-05-10 18:42] LABS: Urine Protein, UAD 1+ (Negative)
[2025-05-10 20:20] VITALS: RESP 25; O2SAT 97
--- NOTE | 2025-05-10 20:20 | ECG ---
[facility] Test Date: 2025-05-10 Test Time: 18:26:48 Pat Name: ANNABELLE MORALES Department: [facility] ED Patient ID: [id number] Room: 0216T Gender: M It Compliance Analyst: irving : 1955 Requested By: ALCIDES RAZA Order Number: [id number] Reading MD: Mando Perales Measurements Intervals [place] Rate: 113 P: 76 [place]: 175 QRS: 31 QRSD: 79 T: -20 QT: 344 QTc: 472 Interpretive Statements Sinus tachycardia Borderline low voltage, extremity leads Anteroseptal infarct, old Electronically Signed On 05-12-2025 10:32:28 PST by Mando Perales Please click the below link to view image of tracing.
--- NOTE | 2025-05-10 23:54 | DVHHPRES ---
Review of Systems Allergies: Coded Allergies: NO KNOWN ALLERGIES (Unverified , 09/15/24) Medications Current Medications Medications Dose Ordered Sig/Annabelle Route Start Time Stop Time Status Last Admin Dose Admin Enoxaparin Sodium 40 mg DAILY SC 05/11/25 10:00 Atorvastatin Calcium 40 mg HS PO 05/11/25 22:00 UNV Aspirin 81 mg DAILY PO 05/11/25 10:00 UNV Insulin Glargine 10 units QAM SC 05/11/25 07:00 UNV Insulin Human Lispro 4 units AC SC 05/11/25 07:00 UNV Diagnostic Test (Pha) 1 strip IQ4HR 05/11/25 00:00 UNV Insulin Human Regular IQ4HR SC 05/11/25 00:00 UNV Dextrose 50 ml UD PRN IV 05/11/25 00:00 UNV Amlodipine Besylate 5 mg DAILY PO 05/11/25 10:00 UNV Losartan Potassium 50 mg DAILY PO 05/11/25 10:00 UNV Exam Vital Signs Vital Signs Date Time Temp Pulse Resp B/P (MAP) Pulse Ox O2 Delivery O2 Flow Rate FiO2 05/10/25 18:26 113 05/10/25 17:44 99.3 25 128/71 (90) 98 99.3 05/10/25 14:11 Room Air* 0 21 Labs/Xrays Labs Test 05/10/25 19:07 05/10/25 18:13 05/10/25 15:02 Range/Units Troponin I High Sensitivity 1509 *H </=54 ng/L Urine Color Light-yellow Yellow Urine Clarity Clear Clear Urine pH 5.5 5.0-9.0 Urine Specific [place] 1.014 1.001-1.035 Urine Protein 1+ H Negative Urine Ketones 1+ H Negative Urine Blood Trace H Negative /uL Urine Nitrite Negative Negative Urine Bilirubin Negative Negative Urine Urobilinogen Normal Negative mg/dL Urine Leukocyte Esterase Negative Negative /uL Urine RBC <1 0 - 3 /hpf Urine Microscopic WBC < 1 0-3 /HPF Urine Squamous Epithelial Cells None seen <5 /hpf Urine Bacteria None seen None Seen /hpf Urine Hyaline Casts Few 0 - 2 /lpf Urine Glucose 4+ H Normal mg/dL White Blood Count 18.7 H 4.4-10.8 10^3/uL Red Blood Count 5.16 4.5-5.90 10^6/uL Hemoglobin 14.9 13.5-17.5 g/dL Hematocrit 45.5 41.0-53.0 % Mean Corpuscular Volume 88.3 80.0-100.0 fL Mean Corpuscular Hemoglobin 28.9 28.0-32.0 pg Mean Corpuscular Hemoglobin Concent 32.7 32.0-36.0 g/dL Red Cell Distribution Width 13.7 11.8-14.3 % Platelet Count 344 140-450 10^3/uL Mean Platelet Volume 7.2 6.9-10.8 fL Neutrophils (%) (Auto) 87.4 H 37.0-80.0 % Lymphocytes (%) (Auto) 7.7 L 10.0-50.0 % Monocytes (%) (Auto) 4.0 0.0-12.0 % Eosinophils (%) (Auto) 0.4 0.0-7.0 % Basophils (%) (Auto) 0.5 0.0-2.0 % Neutrophils # (Auto) 16.4 H 1.6-8.6 10 ^3/uL Lymphocytes # (Auto) 1.4 0.4-5.4 10 ^3/uL Monocytes # (Auto) 0.8 0-1.3 10 ^3/uL Eosinophils # (Auto) 0.1 0-0.8 10 ^3/uL Basophils # (Auto) 0.1 0-0.2 10 ^3/uL Nucleated Red Blood Cells 0.1 % Sodium Level 140 136-145 mmol/L Potassium Level 4.4 3.5-5.1 mmol/L Chloride Level 102 98-107 mmol/L Carbon Dioxide Level 21 20-31 mmol/L Anion Gap 17 H 5-15 Blood Urea Nitrogen 14 9-23 mg/dL Creatinine 1.35 H 0.700-1.30 mg/dL Glomerular Filtration Rate Calc 56 >90 mL/min BUN/Creatinine Ratio 10.4 10.0-20.0 Serum Glucose 308 H 74-106 mg/dL Calcium Level 9.5 8.7-10.4 mg/dL SEPSIS Sepsis Screen Date sepsis recognized/suspect: May 10, 2025 Time Sepsis recognized/suspect: 1407 Recent Procedure: No On Antibiotic Therapy: No Respiratory Rate >20: No Heart Rate >90: Yes Temp<36 C (96.8 F) or >38.3 C: No SBP <90 or MAP <65 mmHG: No New Acute Mental Status Change: No Is the patient on CPAP, BIPAP,: No Physician Orders * Cardiology Consult (05/10/25 20:18) Electrocardigram (05/10/25 21:18) Admit (05/10/25 23:42) Allergies (05/10/25 23:42) Code Status (05/10/25 23:42) Enoxaparin Sodium (Lovenox) (05/11/25 10:00) Fall Risk Precautions In Place QSHIFT (05/10/25 23:42) Complete Blood Count (05/11/25 04:00) Comprehensive Metabolic Panel (05/11/25 04:00) Cardiac Diet-2gna,Lofat,Lochol (05/11/25 Breakfast) Condition: Fair (05/10/25 23:42) Lactic Acid W/ Reflex Order (05/10/25 23:44) PTPTT (05/10/25 23:44) Creatine Kinase (05/10/25 23:44) Lipase (05/10/25 23:44) Abg W/ Co-Ox (05/10/25 23:44) Drug Screen (05/10/25 23:44) Blood Alcohol (05/10/25 23:44) Magnesium (05/10/25 23:44) Phosphorus (05/10/25 23:44) Sodium Chloride 0.9% (05/11/25 00:00) Atorvastatin (Lipitor) (05/11/25 22:00) Aspirin Enteric Coated Tablet (Ecotrin E (05/11/25 10:00) Insulin Lantus (Glargine) (Lantus) (05/11/25 07:00) Insulin Lispro (Human) (Humalog) (05/11/25 07:00) Glucose Blood (Accu-Chek Comfort Curve T (05/11/25 00:00) Insulin R (Human) (Insulin R) (05/11/25 00:00) Dextrose 50% Syringe (05/11/25 00:00) Amlodipine Tablet (Norvasc Tablet) (05/11/25 10:00) Losartan Tablet (Cozaar Tablet) (05/11/25 10:00) Vital Signs Date Time Temp Pulse Resp B/P (MAP) Pulse Ox O2 Delivery O2 Flow Rate FiO2 05/10/25 18:26 113 05/10/25 17:44 99.3 116 25 128/71 (90) 98 99.3 05/10/25 16:00 98 Laboratory Tests Test 05/10/25 15:02 White Blood Count 18.7 10^3/uL (4.4-10.8) H Medications Medications Dose Ordered Sig/Annabelle Route Start Time Stop Time Status Last Admin Dose Admin Aspirin 325 mg ONCE ONCE PO 05/10/25 19:00 05/10/25 19:01 DC 05/10/25 18:58 325 MG Clindamycin Phosphate 50 ml @ 50 mls/hr ONCE ONCE IV 05/10/25 15:00 05/10/25 15:59 DC 05/10/25 15:23 50 MLS/HR Piperacillin Sod/ Tazobactam Sod 100 ml @ 100 mls/hr ONCE ONCE IV 05/10/25 15:00 05/10/25 15:59 DC 05/10/25 16:06 100 MLS/HR Sodium Chloride 2,000 ml @ 1,000 mls/hr Q2H ONCE IV 05/10/25 17:15 05/10/25 19:14 DC 05/10/25 17:21 1,000 MLS/HR Assessment/Plan My Orders Orders - ELI OROZCO RESIDENT Procedure Category Date Status Time Admit ADMIT 05/10/25 Transmitted 23:42 Allergies OZZY 05/10/25 In Process 23:42 Code Status CODE 05/10/25 Transmitted 23:42 Enoxaparin Sodium PHA 05/11/25 In Process (Lovenox) 10:00 Fall Risk Precautions OZZY 05/10/[address] 23:42 Complete Blood Count LAB 05/11/25 Verified 04:00 Comprehensive LAB 05/11/25 Verified Metabolic Panel 04:00 Cardiac DIET 05/11/25 Transmitted Diet-2gna,Lofat,Lochol Breakfast Condition: Fair OZZY 05/10/25 In Process 23:42 Lactic Acid W/ Reflex LAB 05/10/25 Logged Order 23:44 PTPTT LAB 05/10/25 Logged 23:44 Creatine Kinase LAB 05/10/25 Logged 23:44 Lipase LAB 05/10/25 Logged 23:44 Abg W/ Co-Ox RT 05/10/25 Logged 23:44 Drug Screen LAB 05/10/25 In Process 23:44 Blood Alcohol LAB 05/10/25 Logged 23:44 Magnesium LAB 05/10/25 Logged 23:44 Phosphorus LAB 05/10/25 Logged 23:44 Sodium Chloride 0.9% PHA 05/11/25 Logged 00:00 Atorvastatin (Lipitor) PHA 05/11/25 Logged 22:00 Aspirin Enteric PHA 05/11/25 Logged Coated Tablet 10:00 Insulin Lantus PHA 05/11/25 Logged (Glargine) (Lantus) 07:00 Insulin Lispro PHA 05/11/25 Logged (Human) (Humalog) 07:00 Glucose Blood PHA 05/11/25 Logged (Accu-Chek Comfort 00:00 Insulin R (Human) PHA 05/11/25 Logged (Insulin R) 00:00 Dextrose 50% Syringe PHA 05/11/25 Logged 00:00 Amlodipine Tablet PHA 05/11/25 Logged (Norvasc Tablet) 10:00 Losartan Tablet PHA 05/11/25 Logged (Cozaar Tablet) 10:00 ELI OROZCO RESIDENT May 10, 2025 23:54
[2025-05-11] VITALS (12 sets, daily range): BP systolic 123–151; BP diastolic 75–90; PULSE 77–107; RESP 15–19; TEMP 97.2–99.5; O2SAT 91–98
[2025-05-11] MEDS ORDERED: DEXTROSE (50%) 50ML SYRG IV PRN
[2025-05-11 00:16] LABS: INR 0.96 (0.9-1.15); Partial Thromboplastin Time 25.3 SEC (24.5-34.5); Prothrombin Time 10.2 sec (9.3-11.8)
[2025-05-11 00:17] LABS: Amphetamine Screen, Urine Neg (NEGATIVE); Barbiturate Scree,Urine Neg (NEGATIVE); Benzodiazephine Screen, Urine Neg (NEGATIVE); Cannabinoid Screen, Urine Neg (NEGATIVE); Cocaine Screen, Urine Neg (NEGATIVE); Opiate Scree,Urine Neg (NEGATIVE); Phencyclidine Screen, Urine Neg (NEGATIVE)
[2025-05-11 00:18] LABS: Magnesium 2.4 mg/dL (1.6-2.6)
[2025-05-11 00:19] LABS: Base Excess -5.8 mmol/L (-2.0-3.0)
[2025-05-11 00:21] LABS: Creatine Kinase IFCC 884 U/L (46-171)
[2025-05-11] MEDS: ACCU-CHEK COMFORT CURVE STRIP VI SCH (00:25)
[2025-05-11] MEDS: InsuLIN REG 1unit/0.01ml Soln (100units/ml) SC SCH (00:27)
[2025-05-11] MEDS: SODIUM CHLORIDE 0.9% 1,000 ML IV ONE (00:29)
[2025-05-11 00:47] LABS: Lipase 27 U/L (12-53)
[2025-05-11 02:42] LABS: Hematocrit 41.6 % (41.0-53.0); Hemoglobin 13.9 g/dL (13.5-17.5); Mean Corpuscular Hemoglobin 28.9 pg (28.0-32.0); Mean Corpuscular Volume 86.6 fL (80.0-100.0); Nucleated Red Blood Cells % 0.0 %
[2025-05-11 02:55] LABS: Alanine Aminotransferase 30 U/L (7-40); Anion Gap 10 (5-15); BUN/Creatinine Ratio 11.7 (10.0-20.0); Blood Urea Nitrogen 14 mg/dL (9-23); Calcium 8.8 mg/dL (8.7-10.4); Carbon Dioxide 24 mmol/L (20-31); Potassium 4.0 mmol/L (3.5-5.1); Sodium 142 mmol/L (136-145); Total Protein 6.2 g/dL (5.7-8.2)
[2025-05-11 02:56] LABS: Albumin 3.6 g/dL (3.2-4.8); Bilirubin, Total 0.8 mg/dL (0.2-1.0)
[2025-05-11 03:03] LABS: Alkaline Phosphatase 127 U/L (46-116); Chloride 108 mmol/L (98-107); Glucose 225 mg/dL (74-106)
[2025-05-11 03:29] LABS: Triglycerides 64 mg/dL (< 150)
[2025-05-11 03:31] LABS: Cholesterol 145 mg/dL (< 200)
[2025-05-11 03:38] LABS: HDL Cholesterol 64 mg/dL (40-59)
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
[2025-05-11] MEDS ORDERED: GLIP5TAB21 PO (05:46)
[2025-05-11] MEDS: INSULIN LANTUS (GLARGINE) 1 /0.01ml (100units/ml) SC SCH (06:16)
[2025-05-11] MEDS ORDERED: INSULIN LISPRO (HUMAN) 100 UNITS/ML ML SC SCH (07:00)
[2025-05-11] MEDS: INSULIN LISPRO (HUMAN) 100 UNITS/ML ML SC SCH (07:00)
[2025-05-11] MEDS: ENOXAPARIN SOD 40 MG/0.4 ML SYRINGE SC SCH (10:00)
[2025-05-11] MEDS: ASPirin-EC 81 mg tab PO SCH (10:13)
[2025-05-11] MEDS: LOSARTAN POTASSIUM 50 MG TAB PO SCH (10:14)
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
[2025-05-11] MEDS: HEPARIN DRIP/D5W 100UNITS/ML 250 ML IV SCH (12:30)
[2025-05-11] MEDS: HEPARIN SODIUM (PORCINE) 5000 UNITS/ML 1ML VIAL IV ONE (12:30)
[2025-05-11 13:59] LABS: INR 0.98 (0.9-1.15); Partial Thromboplastin Time 29.2 SEC (24.5-34.5); Prothrombin Time 10.4 sec (9.3-11.8)
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
[2025-05-11] MEDS: IODIXANOL 320MG/ML 100ML BTL IV ONE (16:59)
[2025-05-11] MEDS: SODIUM CHL 0.9% 50 ML ONE (17:34)
[2025-05-11] MEDS: MIDAZOLAM HCL 2MG/2ML 2ml VIAL (1mg/ml) ONE (17:34)
[2025-05-11] MEDS: fentaNYL CITRATE 100 MCG/2 ML VL ONE (17:34)
[2025-05-11] MEDS: LIDOCAINE 2%HCL (LOCAL ANESTH.) INJ 20ML MDV ONE (17:34)
[2025-05-11] MEDS: ANGIOMAX 250 MG VIAL IV ONE (17:34)
[2025-05-11] MEDS: HEPARIN SODIUM (PORCINE) 5000 UNITS/ML 1ML VIAL ONE (17:35)
[2025-05-11] MEDS: VERAPAMIL 2.5MG/ML INJ 2ML VIAL IV ONE (17:35)
[2025-05-11 18:12] LABS: INR 1.02 (0.9-1.15); Partial Thromboplastin Time 55.0 SEC (24.5-34.5); Prothrombin Time 10.8 sec (9.3-11.8)
[2025-05-11] MEDS: ATROPINE SULF 1 MG/10ml SYR ONE (18:29)
[2025-05-11] MEDS: TICAGRELOR 90 MG TAB ONE (18:32)
[2025-05-11] MEDS ORDERED: ZOLPIDEM TARTRATE 5 MG TAB PO PRN (19:15)
[2025-05-11] MEDS ORDERED: LORazepam 0.5 MG TAB PO PRN (19:15)
[2025-05-11] MEDS ORDERED: MORPHINE SULFATE 4 MG/ML SYR/VIAL IV PRN (19:15)
[2025-05-11] MEDS ORDERED: NITROGLYCERIN 0.4 MG SL TAB SL PRN ×2 (19:15)
[2025-05-11] MEDS ORDERED: MORPHINE SULFATE INJ 2 MG/ml SYRG IV PRN (19:15)
[2025-05-11] MEDS: FUROSEMIDE 20 MG/2 ML VIAL ONE (19:36)
[2025-05-11] MEDS: FUROSEMIDE 40 MG/4 ML VIAL IV ONE (19:40)
[2025-05-11] MEDS ORDERED: FUROSEMIDE 40 MG/4 ML VIAL IV ONE (19:45)
--- NOTE | 2025-05-11 20:18 | DVHOP ---
DATE OF SURGERY: 05/11/2025 TECHNIQUE PERFORMED: * Emergency case. * Ultrasound of right radial artery. * Management of conscious sedation. * Ultrasound-guided insertion of 6-[place] arterial line in the right radial artery. * Right coronary artery angiography. * Mechanical thrombectomy of the right radial artery. * Balloon angioplasty of the distal region of the right radial artery with 3.5 x 12 mm length semi-compliant balloon. * Stenting and angioplasty of the distal region of the right coronary artery with 4.0 x 15 mm length [place] stent of Medtronic Meteo Protect. * Intravascular ultrasound of the right coronary artery and the stent region. * Balloon angioplasty of the right groin stent with 4.0 x 8 mm in length non-compliant balloon and mid artery size 4.3 mm in size. COMPLICATIONS: None. ASSISTANTS: Assisted by our staff over here is Amanda Toribio Juliet, and Patrick. Long weekend at approximately 05:30 p.m. INDICATIONS: Acute myocardial infarction, troponin more than 4000, active chest pain. DESCRIPTION OF PROCEDURE: Risks and benefits discussed. Brought to seed laboratory technician. Angiography was done after putting the arterial line under ultrasound guidance. JR4, 6-5 guiding catheter with a side hole. Right coronary angiography has been done. The Angiomax was started. We put [place] wire. Mechanical thrombectomy was done with the help of [place] catheter and subsequently we put a balloon 3.5 x 12 mm balloon. Balloon angioplasty was done and subsequently, we put a stent 4.0 x 15 mm length [place] stent of the Medtronic Meteo Protect, fully deployed over there, and after deploying the stent for 31 seconds followed by 21 seconds, angiography done. Results were satisfactory. We did intravascular ultrasound. After doing the intravascular ultrasound, we also now put a non-compliant balloon because there was still some gap between the stent and the media, and made the stent size all the way to 4.3 mm in size. Procedure went well. The patient was given Brilinta in the seed laboratory technician in the middle of the procedure. Did very well. No cardiac symptoms. Hemodynamically stable. The patient has been brought to the recovery room after putting the TR band, and all the orders have been returned. CONCLUSION: Prior to performing the procedure, the right coronary artery is a large dominant artery, distally 99% block thrombotic lesion. The patient had preprocedure 99%, MICHAEL grade 2 flow, post procedure MICHAEL grade 3 flow, and residual stenosis is 0%. No spasm. No dissection. No thrombosis. PLAN OF ACTION: Advised for aspirin, Brilinta at least at this time period, and Lipitor if tolerated, beta gianni, and then take him back and fix the left anterior descending artery. Lasix as needed, and intravascular ultrasound, Jardiance, or Farxiga, and POOJA inhibitor, he will need it over a long time. Pratik Frederick MD MP/[facility] [place] TID: [id number] RECEIPT: [id number]
--- NOTE | 2025-05-11 20:26 | DVHSR ---
APPROVED REPORT EXAM: Two-dimensional and M-mode echocardiogram with Doppler and color Doppler. Blood Pressure: 132/86 mmHg INDICATION rule out structural heart disease RISK FACTORS Height: 5'7, Weight: 160 DIMENSIONS LVDd 4.3 (3.8-5.7cm) LA (2D) 4.4 (1.9-4.0cm) Aortic Root 3.3 (2.0-3.7cm) LVDs 3.1 (2.5-4.0cm) LA (MM) (1.9-4.0cm) Aortic Cusp Exc 1.8 (1.5-2.0cm) EF (%) 45.0 (55-70%) Rt. Atrium 3.2 (1.9-4.0cm) Asc. Aorta 3.6 cm IVSd 1.2 (0.7-1.1cm) RV (D) 3.7 (1.8-2.4cm) PWd 1.2 (0.7-1.1cm) Mitral Valve Mitral Mitral Stenosis E wave 0.52m/s MV Mean GR. mmHg A wave 1.13m/s MV Peak GR. 37mmHg E/A ratio 0.5 2D MVA cm2 DECEL Time 153ms PRESS 1/2 Time ms Aortic Valve Aortic Valve Aortic Stenosis V1 0.65m/s AO Mean GR. 5mmHg V2 1.41m/s AO Peak GR. 8mmHg LVOT Diameter 2.3 (1.8-2.4cm) Doppler MAIKEL 1.91cm2 AI P 1/2 Time 423.47ms Pulmonic Valve V2 0.67m/s Tricuspid Valve TR Velocity 2.24m/s RVSP 23mmHg Conclusion MODERATE DEGREE LVH AND MODERATE DEGREE LV DIASTOLIC DYSFUNCTION MAJOR HYPOKINESIS OF DISTAL HALF OF IVS ,LV APEX AND ANTERIOR LV WALL INFERIOR WALL ALSO HYPOKINETIC LV EF IS IN RANGE OF ONLY 20% SYSTOLIC AND DIASTOLIC LV DYSFUNCTION NORMAL VALVES NO EFFUSION
[2025-05-11] MEDS: POTASSIUM CHL 20 Meq TABLET PO ONE (21:00)
[2025-05-11] MEDS: TICAGRELOR 90 MG TAB PO SCH (22:00)
[2025-05-11] MEDS ORDERED: TICAGRELOR 90 MG TAB PO SCH (22:00)
[2025-05-11] MEDS: MILK OF MAGNESIA 30ML SUSP PO ONE (22:40)
[2025-05-11] MEDS: ATORVASTATIN 20 MG TAB PO SCH (22:45)
[2025-05-11] MEDS: SACUBITRIL-VALSARTAN 24mg/26mg TAB PO SCH (22:46)
[2025-05-11] MEDS: CARVEDILOL 3.125 MG TAB PO SCH (22:48)
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
[2025-05-12] VITALS (14 sets, daily range): BP systolic 110–153; BP diastolic 66–92; PULSE 75–93; RESP 13–22; TEMP 97.6–99; O2SAT 93–96
--- NOTE | 2025-05-12 03:04 | DVHOP ---
DATE OF SURGERY: 05/11/2025 TECHNIQUE PERFORMED: * Emergency case. * Ultrasound of right radial artery. * Management of conscious sedation. * Insertion of the 6-[place] arterial line in the right radial artery. * Left heart cath. * Left ventriculogram. * [place] selective left and right coronary artery angiography. ASSISTANTS: Allison Toribio and Madhavi. COMPLICATIONS: None. INDICATIONS: It was an emergency case. troponin more than 4000, chest pain. DESCRIPTION OF PROCEDURE: The procedure, risks and benefits were discussed in standard manner. lidocaine were given. The 6-Scottish arterial line was placed under ultrasound. TIG catheter 5-Scottish 4.0 catheter. The right was performed with the help of pigtail catheter. The complete left heart catheterization was done and the left ventriculogram was done 20 mL. Post-LV gram, left ventricular end-diastolic pressure performed. With the help of pull-through technique, aortic pressure was also performed. IMPRESSION: * Normal left main. * Left main artery from proximal to mid region has got 99% block, type C lesion, with multiple irregularities, calcifications and thrombosis. There is a long lesion at least in the range of 26 mm in length. A 3.5-size vessel. The circumflex artery is of moderate size. Underlying distally is a 90% block. The right coronary artery is a very large luminal artery. Acute plaque rupture. Distally has 99% block and MICHAEL grade 2 flow. Posterior descending artery is normal. Posterolateral branch is normal. Ejection fraction maximum in the range of 20%. Lower half of the anterior wall, apical wall, apical inferior wall, left ventricle. PLAN OF ACTION: To undergo angioplasty with stent of the right coronary artery. Plan of action follows. Advised the patient to undergo the immediate angioplasty and stenting of the right coronary artery followed by angioplasty and stenting of the left main descending artery after a day or two. Pratik Frederick MD MP/[facility] TID: [id number] RECEIPT: [id number] [facility]
[2025-05-12] MEDS: FUROSEMIDE 20 MG/2 ML VIAL IV SCH (05:00)
[2025-05-12 06:44] LABS: Hematocrit 44.6 % (41.0-53.0); Hemoglobin 14.8 g/dL (13.5-17.5); Mean Corpuscular Hemoglobin 29.0 pg (28.0-32.0); Mean Corpuscular Volume 87.5 fL (80.0-100.0); Nucleated Red Blood Cells % 0.1 %
[2025-05-12 06:57] LABS: Albumin 3.9 g/dL (3.2-4.8); Blood Urea Nitrogen 13 mg/dL (9-23); Magnesium 2.2 mg/dL (1.6-2.6); Total Protein 6.9 g/dL (5.7-8.2)
[2025-05-12 07:02] LABS: Anion Gap 15 (5-15)
[2025-05-12 07:07] LABS: Alanine Aminotransferase 55 U/L (7-40); Alkaline Phosphatase 154 U/L (46-116); BUN/Creatinine Ratio 12.3 (10.0-20.0); Calcium 9.4 mg/dL (8.7-10.4); Carbon Dioxide 23 mmol/L (20-31); Chloride 105 mmol/L (98-107); Glucose 158 mg/dL (74-106); Potassium 3.6 mmol/L (3.5-5.1); Sodium 143 mmol/L (136-145)
[2025-05-12 07:09] LABS: Bilirubin, Total 0.8 mg/dL (0.2-1.0)
[2025-05-12] MEDS: ASPirin-EC 81 mg tab PO SCH (09:10)
[2025-05-12] MEDS: EMPAGLIFLOZIN 10 MG TAB PO SCH (09:11)
[2025-05-12] MEDS: SPIRONOLACTONE 25 MG TAB PO SCH (10:00)
[2025-05-12 10:32] LABS: Hepatitis B Surface Antigen Negative (Negative)
[2025-05-12 10:48] LABS: Hepatitis C Antibody Negative (Negative)
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
[2025-05-12] MEDS: HEPARIN IN NS 1000Units/500mL 1,500 ML ONE (14:37)
[2025-05-12] MEDS: IODIXANOL 320MG/ML 100ML BTL IV ONE (14:37)
[2025-05-12] MEDS: fentaNYL CITRATE 100 MCG/2 ML VL ONE (14:44)
[2025-05-12] MEDS: ANGIOMAX 250 MG VIAL IV ONE ×2 (14:44→16:14)
[2025-05-12] MEDS: MIDAZOLAM HCL 2MG/2ML 2ml VIAL (1mg/ml) ONE (14:45)
[2025-05-12] MEDS: FAMOTIDINE (10MG/ML) 2ML VL IV ONE (14:45)
[2025-05-12] MEDS: LIDOCAINE 2%HCL (LOCAL ANESTH.) INJ 20ML MDV ONE (14:45)
[2025-05-12] MEDS: SODIUM CHL 0.9% 50 ML ONE ×2 (14:45→16:26)
[2025-05-12] MEDS: VERAPAMIL 2.5MG/ML INJ 2ML VIAL IV ONE (14:46)
[2025-05-12] MEDS: FUROSEMIDE 20 MG/2 ML VIAL ONE (15:17)
[2025-05-12] MEDS: NOREPINEPHRINE 8 MG/250ML KIT 250 ML IV ONE (15:31)
[2025-05-12] MEDS: TICAGRELOR 90 MG TAB ONE (16:58)
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
--- NOTE | 2025-05-12 18:32 | DVHOP ---
DATE OF SURGERY: 05/12/2025 DATE OF SURGERY: 05/12/2025 TECHNIQUE PERFORMED: * Emergency case. * Ultrasound of the right radial artery. * Management of the conscious sedation. * Left coronary angiography. * Mechanical thrombectomy and left anterior descending artery. * Balloon angioplasty of the left anterior descending artery with 2.5 x 12 mm semi-compliant balloon. * Insertion of second wire in the diagonal artery for the protection. * Total of two stents are deployed in the left anterior descending artery. The first stent is 3.0 x 38 mm in length, Macario [place] stent of [employer]. * The second stent overlapping the first stent in the proximal region of the left anterior descending artery, which is 3.5 x 18 mm in length, [place] stent of [employer]. * Balloon angioplasty of the entire region of the left anterior descending artery with the help of the similar balloon and 3.5 x 18 mm balloon, and the balloon and the whole artery is sized up to more than 3.75 mm in size from proximally, mid, and distally within the entire stent. COMPLICATIONS: None. ASSISTANTS: Madhavi Toribio and Paul. INDICATIONS: The patient has a very long segment type C lesion from proximal to mid region of the left anterior descending artery, which is heavily calcified, thrombogenic, and with underlying clinical echo findings of a large apical anterior wall hypokinesis with underlying ejection fraction in the range of about 20% only. DESCRIPTION OF PROCEDURE: The risks, benefits, and having clearly discussed with the patient, the patient got Lasix 20 mg IV before we started the procedure. The patient was given IV AngioMax, IV Versed and fentanyl was given. A 6-Kittitian arterial line was placed under ultrasound, and subsequently now we have put an XB 3.5 6-Kittitian catheter and left coronary angiogram done subsequently with the help of the 2.5 x 12 mm balloon. We were able to get the wire in [place] left anterior descending artery. It was a very heavily calcified lesion, uneven surface, so it was very difficult for us to get. Initially, I have used the Inviragen wire, which did not help, so I had no choice but to use the choice access of floppy wire, which was able to go in the distal region of the left anterior descending artery. And subsequently, the balloon angiography was done with 2.5 x 12 mm length balloon, and the balloon angioplasty was done from proximal, mid, and distal region of the whole lesion. We have also put the Lucas catheter for thrombectomy. Subsequently, now I have put a second wire, which is a Runthrough wire with the help of a 2.5 balloon, which went in the diagonal artery for the protection. Subsequently, we have put a 3.0 x 38 mm length Mac[place] stent of [employer] deployed, total of 13, 15, and 17 atmosphere and the size of the stent was being increased to 3.5 mm in length. Subsequently, the stent was inflated for subsequently for 21 seconds. Subsequently I put another stent, which is 3.5 x 18 mm stent overlapping the first stent deployed, a total of 15 atmosphere, subsequently to 70 atmosphere, and the whole stent size was increased to more than 3.75 mm. The similar balloon was taken down and inflated, and made the whole stent to more than 3.75 proximally, mid, and distal region of the first stent also. The balloon had been discontinued. Angiography was done. Results were satisfactory. There was no complication. Balloon, wire, catheter was discontinued. CONCLUSION: * The left anterior descending artery has a type C lesion, very long segment, calcified, uneven, and the length of the stenosis was in the range of almost like 45 mm in length. * Total of 2 stents are deployed in the left anterior descending artery. The first stent deployed was 3.0 x 38 mm length and inflated to make it to 3.75. The second stent was 3.5 x 18 and inflated to make it to more than 3.75. * Pre-procedure, the lesion has a type C MICHAEL grade 2 flow, calcified, thrombogenic lesion. Pre-stenosis, it has been narrowing in the range of 90% and at times it becomes 99% thrombogenic lesion. * Post-procedure, the residual stenosis is 0% and no spasm, no dissection, no thrombosis. PLAN OF ACTION: Aspirin one a day, Brilinta 90 b.i.d., metoprolol, and cholesterol-reducing medicine. He will need Jardiance 10 mg a day. He will also need Lasix and spironolactone. He needs POOJA inhibitor like Entresto. He has to come back to the [facility] to fix the circumflex artery because of the critical narrowing. Pratik Frederick MD MP/TYRONE TID: [id number] RECEIPT: [id number]
[2025-05-12] MEDS: HYDROcodone-ACET 5/325MG TAB PO PRN (20:28)
[2025-05-12] MEDS ORDERED: INSULIN LISPRO (HUMAN) 100 UNITS/ML ML SC SCH (22:00)
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
[2025-05-13] VITALS (8 sets, daily range): BP systolic 102–144; BP diastolic 64–87; PULSE 75–101; RESP 16–20; TEMP 97.1–98.2; O2SAT 93–99
[2025-05-13 06:22] LABS: Hematocrit 43.9 % (41.0-53.0); Hemoglobin 14.8 g/dL (13.5-17.5); Mean Corpuscular Hemoglobin 29.5 pg (28.0-32.0); Mean Corpuscular Volume 87.6 fL (80.0-100.0); Nucleated Red Blood Cells % 0.1 %
[2025-05-13 06:34] LABS: Chloride 100 mmol/L (98-107); Potassium 3.7 mmol/L (3.5-5.1); Sodium 141 mmol/L (136-145)
[2025-05-13 06:35] LABS: Anion Gap 20 (5-15); Carbon Dioxide 21 mmol/L (20-31)
[2025-05-13 06:36] LABS: Calcium 9.6 mg/dL (8.7-10.4)
[2025-05-13 06:39] LABS: Alkaline Phosphatase 184 U/L (46-116)
[2025-05-13 06:41] LABS: BUN/Creatinine Ratio 16.7 (10.0-20.0); Blood Urea Nitrogen 21 mg/dL (9-23); Magnesium 2.2 mg/dL (1.6-2.6); Total Protein 7.0 g/dL (5.7-8.2)
[2025-05-13 06:42] LABS: Albumin 4.0 g/dL (3.2-4.8)
[2025-05-13 06:43] LABS: Bilirubin, Total 1.1 mg/dL (0.2-1.0)
[2025-05-13 06:51] LABS: Glucose 209 mg/dL (74-106)
[2025-05-13 07:06] LABS: Alanine Aminotransferase 69 U/L (7-40)
--- NOTE | 2025-05-13 09:46 | ECG ---
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
--- NOTE | 2025-05-13 09:46 | ECG ---
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
--- NOTE | 2025-05-13 10:46 | DVHPN2 ---
Subjective Denies cardiac event Denies chest pain or shortness of breath Reviewed: Care Plan Changes from previous H/P or p: No Changes Objective Vitals Vital Signs Date Time Temp Pulse Resp B/P (MAP) Pulse Ox O2 Delivery O2 Flow Rate FiO2 05/13/25 09:40 108/66 05/13/25 08:56 97.5 89 18 99 97.5 05/12/25 20:00 Room Air* 0 21 Intake/Output Intake and Output 05/13/25 07:00 Intake Total 475 ml Balance 475 ml Intake Oral 475 ml # Voids 2 General Appearance: Alert, Oriented X3, Cooperative, No acute distress Lungs: Clear to auscultation, Normal air movement Cardiovascular: Regular rate, Normal S1, Normal S2 Abdomen: Normal bowel sounds, Soft, No tenderness Extremities: No edema Medications Current Medications Medications Dose Ordered Sig/Annabelle Route Start Time Stop Time Status Last Admin Dose Admin Atorvastatin Calcium 40 mg HS PO 05/11/25 22:00 05/12/25 21:21 40 MG Insulin Glargine 10 units QAM SC 05/11/25 07:00 05/13/25 06:52 10 UNITS Diagnostic Test (Pha) 1 strip IQ4HR 05/11/25 00:00 05/13/25 08:00 1 STRIP Dextrose 50 ml UD PRN IV 05/11/25 00:00 Insulin Human Lispro 4 units AC SC 05/11/25 07:00 05/13/25 06:51 4 UNITS Nitroglycerin 0.4 mg Q5MP PRN SL 05/11/25 19:15 Cancel Acetaminophen/ Hydrocodone Bitart 1 tab Q4HP PRN PO 05/11/25 19:15 05/12/25 20:28 1 TAB Zolpidem Tartrate 5 mg QHSP PRN PO 05/11/25 19:15 Lorazepam 0.5 mg Q6HP PRN PO 05/11/25 19:15 Acetaminophen 500 mg Q6HP PRN PO 05/11/25 19:15 Morphine Sulfate 1 mg Q4HP PRN IV 05/11/25 19:15 Aspirin 81 mg DAILY PO 05/12/25 10:00 05/13/25 09:39 81 MG Ticagrelor 90 mg BID PO 05/11/25 22:00 UNV Ticagrelor 90 mg BID PO 05/11/25 22:00 05/13/25 09:39 90 MG Ceftriaxone Sodium/Dextrose 50 ml @ 50 mls/hr DAILY IV 05/11/25 20:00 05/13/25 09:38 50 MLS/HR Empaglifozin 10 mg DAILY PO 05/12/25 10:00 05/13/25 09:40 10 MG Sacubitril/ Valsartan 0.5 tab BID PO 05/11/25 22:00 05/13/25 09:39 0.5 TAB Carvedilol 1.5625 mg Q12HR PO 05/11/25 22:00 05/13/25 09:40 1.5625 MG Furosemide 20 mg BIDD IV 05/12/25 06:00 05/13/25 05:15 20 MG Spironolactone 25 mg DAILY PO 05/12/25 10:00 05/13/25 09:40 25 MG Insulin Human Lispro ACHS SC 05/12/25 22:00 Hold Laboratory Results Laboratory Tests 05/13/25 05:23 Chemistry Test 05/13/25 05:23 Albumin 4.0 g/dL (3.2-4.8) Calcium Level 9.6 mg/dL (8.7-10.4) Magnesium Level 2.2 mg/dL (1.6-2.6) Total Protein 7.0 g/dL (5.7-8.2) LFT Test 05/13/25 05:23 Alanine Aminotransferase (ALT) 69 U/L (7-40) H Alkaline Phosphatase 184 U/L (46-116) H Aspartate Amino Transferase (AST) 93 U/L (13-40) H Total Bilirubin 1.1 mg/dL (0.2-1.0) H Urinalysis Test 05/10/25 18:13 Urine Color Light-yellow (Yellow) Urine Clarity Clear (Clear) Urine pH 5.5 (5.0-9.0) Urine Specific [place] 1.014 (1.001-1.035) Urine Protein 1+ (Negative) H Urine Ketones 1+ (Negative) H Urine Blood Trace /uL (Negative) H Urine Nitrite Negative (Negative) Urine Bilirubin Negative (Negative) Urine Urobilinogen Normal mg/dL (Negative) Urine Leukocyte Esterase Negative /uL (Negative) Urine RBC <1 /hpf (0 - 3) Urine Microscopic WBC < 1 /HPF (0-3) Urine Squamous Epithelial Cells None seen /hpf (<5) Urine Bacteria None seen /hpf (None Seen) Urine Hyaline Casts Few /lpf (0 - 2) Urine Glucose 4+ mg/dL (Normal) H Microbiology Microbiology Date/Time Source Procedure Growth Status 05/11/25 22:31 Blood Blood Culture - Preliminary NO GROWTH AFTER 24 HOURS OF INCUBATION. Resulted Assessment/Plan Assessment/Plan CAD s/p staged PCI, in the RCA and LAD HFrEF (EF 20%) Non ST-elevation myocardial infarction type 1 Rule out structural heart disease Cold exposure with associated hypothermia Hypertension Dyslipidemia Dve-smjpjeo-pgtkamhda diabetes mellitus, uncontrolled (HgbA1C 12.3%) Acute kidney injury Plan/Recommendation (Dr. Mcdermott) Echo- EF 20% Plan for staged LHC # 3 on 05/15/[address] Golden Mcdermott. Keep patient NPO after MN on 05/14/25. Critical care time: 40 min. This medical document was created using an electronic medical record system with voice recognition software and computerized dictation system. Although this document has been carefully reviewed, there might still be some phonetic and typographical errors. Occasional wrong-word or ``sound-alike substitutions may have occurred due to the inherent limitations of voice recognition software. These areas are purely typographical due to imperfections of the software programs and do not reflect any compromise in the patient's medical care. Please read the chart carefully and recognize, using context, where these substitutions have occurred. Plan discussed with: Patient, Other Plan discussed with: Patient Date of Service: May 13, 2025 Billing Provider: JESÚS MCDERMOTT MD Common Visit Codes: CONSULT ONLY Consultation Codes: [id number] CONSULT <45MIN DERREK VIDALES CLOTH PICKER May 13, 2025 10:46
--- NOTE | 2025-05-13 13:36 | DVHPN2 ---
Subjective Doing well No chest pain Status post PCI and stent placement of the LAD He is still needs is circumflex done next week Reviewed: Care Plan Changes from previous H/P or p: Changes Objective Vitals Vital Signs Date Time Temp Pulse Resp B/P (MAP) Pulse Ox O2 Delivery O2 Flow Rate FiO2 05/13/25 12:33 97.6 89 20 102/64 (77) 95 97.6 05/13/25 08:00 Room Air* 0 21 Intake/Output Intake and Output 05/13/25 07:00 Intake Total 475 ml Balance 475 ml Intake Oral 475 ml # Voids 2 General Appearance: Alert, Oriented X3, Cooperative, No acute distress Lungs: Clear to auscultation, Normal air movement Cardiovascular: Regular rate, Normal S1, Normal S2 Abdomen: Normal bowel sounds, Soft, No tenderness Extremities: No edema Medications Current Medications Medications Dose Ordered Sig/Annabelle Route Start Time Stop Time Status Last Admin Dose Admin Atorvastatin Calcium 40 mg HS PO 05/11/25 22:00 05/12/25 21:21 40 MG Insulin Glargine 10 units QAM SC 05/11/25 07:00 05/13/25 06:52 10 UNITS Diagnostic Test (Pha) 1 strip IQ4HR 05/11/25 00:00 05/13/25 12:00 1 STRIP Dextrose 50 ml UD PRN IV 05/11/25 00:00 Insulin Human Lispro 4 units AC SC 05/11/25 07:00 05/13/25 11:43 4 UNITS Nitroglycerin 0.4 mg Q5MP PRN SL 05/11/25 19:15 Cancel Acetaminophen/ Hydrocodone Bitart 1 tab Q4HP PRN PO 05/11/25 19:15 05/12/25 20:28 1 TAB Zolpidem Tartrate 5 mg QHSP PRN PO 05/11/25 19:15 Lorazepam 0.5 mg Q6HP PRN PO 05/11/25 19:15 Acetaminophen 500 mg Q6HP PRN PO 05/11/25 19:15 Morphine Sulfate 1 mg Q4HP PRN IV 05/11/25 19:15 Aspirin 81 mg DAILY PO 05/12/25 10:00 05/13/25 09:39 81 MG Ticagrelor 90 mg BID PO 05/11/25 22:00 UNV Ticagrelor 90 mg BID PO 05/11/25 22:00 12/27/25 09:39 90 MG Ceftriaxone Sodium/Dextrose 50 ml @ 50 mls/hr DAILY IV 05/11/25 20:00 05/13/25 09:38 50 MLS/HR Empaglifozin 10 mg DAILY PO 05/12/25 10:00 05/13/25 09:40 10 MG Sacubitril/ Valsartan 0.5 tab BID PO 05/11/25 22:00 05/13/25 09:39 0.5 TAB Carvedilol 1.5625 mg Q12HR PO 05/11/25 22:00 05/13/25 09:40 1.5625 MG Furosemide 20 mg BIDD IV 05/12/25 06:00 05/13/25 05:15 20 MG Spironolactone 25 mg DAILY PO 05/12/25 10:00 05/13/25 09:40 25 MG Insulin Human Lispro ACHS SC 05/12/25 22:00 Hold Laboratory Results Laboratory Tests 05/13/25 05:23 Chemistry Test 05/13/25 05:23 Albumin 4.0 g/dL (3.2-4.8) Calcium Level 9.6 mg/dL (8.7-10.4) Magnesium Level 2.2 mg/dL (1.6-2.6) Total Protein 7.0 g/dL (5.7-8.2) LFT Test 05/13/25 05:23 Alanine Aminotransferase (ALT) 69 U/L (7-40) H Alkaline Phosphatase 184 U/L (46-116) H Aspartate Amino Transferase (AST) 93 U/L (13-40) H Total Bilirubin 1.1 mg/dL (0.2-1.0) H Urinalysis Test 05/10/25 18:13 Urine Color Light-yellow (Yellow) Urine Clarity Clear (Clear) Urine pH 5.5 (5.0-9.0) Urine Specific [place] 1.014 (1.001-1.035) Urine Protein 1+ (Negative) H Urine Ketones 1+ (Negative) H Urine Blood Trace /uL (Negative) H Urine Nitrite Negative (Negative) Urine Bilirubin Negative (Negative) Urine Urobilinogen Normal mg/dL (Negative) Urine Leukocyte Esterase Negative /uL (Negative) Urine RBC <1 /hpf (0 - 3) Urine Microscopic WBC < 1 /HPF (0-3) Urine Squamous Epithelial Cells None seen /hpf (<5) Urine Bacteria None seen /hpf (None Seen) Urine Hyaline Casts Few /lpf (0 - 2) Urine Glucose 4+ mg/dL (Normal) H Microbiology Microbiology Date/Time Source Procedure Growth Status 05/11/25 22:31 Blood Blood Culture - Preliminary NO GROWTH AFTER 24 HOURS OF INCUBATION. Resulted Assessment/Plan Assessment/Plan Hypothermia Non ST-elevation myocardial infarction, questionable type 1 Rule out structural heart disease Cold exposure with associated hypothermia Hypertension Mixed hyperlipidemia Map-xhvroqw-kdckccujg diabetes mellitus Acute kidney injury due to VMN PLAN: IV fluids were given, acute kidney injury improved, no need for more fluids, the patient might have reduced ejection fraction IV heparin Aspirin Lipitor Cardiology consult Echo Cardiology is planning to do a heart catheterization as soon as possible Monitor closely Full code Not stable for transfer Advance directives discussed for 18 minutes 05/12/25: Severe CAD NSTEMI s/p RCA stenting LAD PCI scheduled for today EF 20% Heparine ASA Brilinta Lipitor Entresto Aldactone Coreg Lasix Not stable to transfer 05/13/2025: Stable No chest pain Status post LAD procedure yesterday He is still needs his circumflex artery done next week Continue the current management and observe the patient on telemetry very carefully Aspirin, Brilinta, Lipitor, Coreg, Jardiance, Lasix, Aldactone, Entresto Not stable for transfer Plan discussed with: Patient Date of Service: May 13, 2025 Billing Provider: FLAQUITO FOWLER MD Common Visit Codes: [id number] INP/OBS CARE(HIGH) FLAQUITO FOWLER MD May 13, 2025 13:36
--- NOTE | 2025-05-13 16:42 | DVHPN2 ---
Consult Progress Note Date Seen: May 13, 2025 Subjective Other Systems: Patient was seen and evaluated in follow up. Denies cardiac event. Denies chest pain or shortness of breath. Echocardiogram showed LV EF 20%. Patient is planned for for staged LHC # 3 on 05/15/25. WBC increased to 14. Telemetry reviewed. Objective vital signs Vital Sign Date Time Temp Pulse Resp B/P (MAP) Pulse Ox O2 Delivery O2 Flow Rate FiO2 05/13/25 12:33 97.6 89 20 102/64 (77) 95 97.6 05/13/25 08:00 Room Air* 0 21 Total Intake and Output 05/12/25 05/12/25 05/13/25 15:00 23:00 07:00 Intake Total 175 ml 300 ml Balance 175 ml 300 ml medications Current Medications Medications Dose Ordered Sig/Annabelle Route Start Time Stop Time Status Last Admin Dose Admin Atorvastatin Calcium 40 mg HS PO 05/11/25 22:00 05/12/25 21:21 40 MG Insulin Glargine 10 units QAM SC 05/11/25 07:00 05/13/25 06:52 10 UNITS Diagnostic Test (Pha) 1 strip IQ4HR 05/11/25 00:00 05/13/25 12:00 1 STRIP Dextrose 50 ml UD PRN IV 05/11/25 00:00 Insulin Human Lispro 4 units AC SC 05/11/25 07:00 05/13/25 11:43 4 UNITS Nitroglycerin 0.4 mg Q5MP PRN SL 05/11/25 19:15 Cancel Acetaminophen/ Hydrocodone Bitart 1 tab Q4HP PRN PO 05/11/25 19:15 05/12/25 20:28 1 TAB Zolpidem Tartrate 5 mg QHSP PRN PO 05/11/25 19:15 Lorazepam 0.5 mg Q6HP PRN PO 05/11/25 19:15 Acetaminophen 500 mg Q6HP PRN PO 05/11/25 19:15 Morphine Sulfate 1 mg Q4HP PRN IV 05/11/25 19:15 Aspirin 81 mg DAILY PO 05/12/25 10:00 05/13/25 09:39 81 MG Ticagrelor 90 mg BID PO 05/11/25 22:00 UNV Ticagrelor 90 mg BID PO 05/11/25 22:00 05/13/25 09:39 90 MG Ceftriaxone Sodium/Dextrose 50 ml @ 50 mls/hr DAILY IV 05/11/25 20:00 05/13/25 09:38 50 MLS/HR Empaglifozin 10 mg DAILY PO 05/12/25 10:00 05/13/25 09:40 10 MG Sacubitril/ Valsartan 0.5 tab BID PO 05/11/25 22:00 05/13/25 09:39 0.5 TAB Carvedilol 1.5625 mg Q12HR PO 05/11/25 22:00 05/13/25 09:40 1.5625 MG Furosemide 20 mg BIDD IV 05/12/25 06:00 05/13/25 05:15 20 MG Spironolactone 25 mg DAILY PO 05/12/25 10:00 05/13/25 09:40 25 MG Insulin Human Lispro ACHS SC 05/12/25 22:00 Hold Examination: GENERAL:Normal, HEENT:Normal, NECK:Normal, LUNGS:Normal, CVS:Normal, ABDOMEN:Normal, MSK:Normal, SKIN:Normal, NEURO:Normal laboratory and microbiology Laboratory Tests 05/13/25 05:23 Test 05/13/25 05:23 Range/Units Serum Glucose 209 H 74-106 mg/dL Problem List/Assessment/Plan Problem List/Assessment/Plan Assessment/Plan CAD s/p staged PCI, in the RCA and LAD. HFrEF (EF 20%). Non ST-elevation myocardial infarction type 1. Rule out structural heart disease. Cold exposure with associated hypothermia. Hypertension. Dyslipidemia. Mnj-egpyjpw-tirwtredi diabetes mellitus, uncontrolled (HgbA1C 12.3%). Acute kidney injury. Plan/Recommendation Continued all current supportive medical care. Patient has been seen by Frida Martinez NP on my behalf. We have discussed the plan with the patient. Echo- EF 20%. Plan for staged LHC # 3 on 05/15/25. Keep patient NPO after MN on 05/14/25. Additional plan as per the hospital course. Plan discussed with: Patient Date of Service: May 13, 2025 Billing Provider: JESÚS MCDERMOTT MD Cardiology Common Codes: [id number] HOSP CARE(High JESÚS MCDERMOTT MD May 13, 2025 16:42
[2025-05-14] VITALS (8 sets, daily range): BP systolic 100–122; BP diastolic 56–81; PULSE 75–107; RESP 16–18; TEMP 97.6–98.2; O2SAT 93–96
[2025-05-14 07:26] LABS: Anion Gap 20 (5-15); Carbon Dioxide 21 mmol/L (20-31); Chloride 100 mmol/L (98-107); Potassium 3.7 mmol/L (3.5-5.1); Sodium 141 mmol/L (136-145)
[2025-05-14 07:28] LABS: Calcium 9.7 mg/dL (8.7-10.4)
[2025-05-14 07:32] LABS: BUN/Creatinine Ratio 15.4 (10.0-20.0); Blood Urea Nitrogen 22 mg/dL (9-23)
[2025-05-14 07:38] LABS: Glucose 156 mg/dL (74-106)
--- NOTE | 2025-05-14 15:47 | DVHPN2 ---
Subjective Asymptomatic Blood pressure is borderline low at 1 100/56 this morning Denies dizziness or lightheadedness Reviewed: Care Plan Changes from previous H/P or p: Changes Objective Vitals Vital Signs Date Time Temp Pulse Resp B/P (MAP) Pulse Ox O2 Delivery O2 Flow Rate FiO2 05/14/25 13:00 98.1 77 17 122/72 (89) 95 98.1 05/14/25 08:00 Room Air* 0 21 Intake/Output Intake and Output 05/14/25 07:00 Intake Total 1578 ml Balance 1578 ml Intake Oral 1578 ml # Voids 6 # Bowel Movements 2 General Appearance: Alert, Oriented X3, Cooperative, No acute distress Lungs: Clear to auscultation, Normal air movement Cardiovascular: Regular rate, Normal S1, Normal S2 Abdomen: Normal bowel sounds, Soft, No tenderness Extremities: No edema Medications Current Medications Medications Dose Ordered Sig/Annabelle Route Start Time Stop Time Status Last Admin Dose Admin Atorvastatin Calcium 40 mg HS PO 05/11/25 22:00 05/13/25 21:28 40 MG Insulin Glargine 10 units QAM SC 05/11/25 07:00 05/14/25 06:36 10 UNITS Diagnostic Test (Pha) 1 strip IQ4HR 05/11/25 00:00 05/14/25 12:11 1 STRIP Dextrose 50 ml UD PRN IV 05/11/25 00:00 Insulin Human Lispro 4 units AC SC 05/11/25 07:00 05/14/25 12:09 4 UNITS Nitroglycerin 0.4 mg Q5MP PRN SL 05/11/25 19:15 Cancel Acetaminophen/ Hydrocodone Bitart 1 tab Q4HP PRN PO 05/11/25 19:15 05/14/25 06:38 1 TAB Zolpidem Tartrate 5 mg QHSP PRN PO 05/11/25 19:15 Lorazepam 0.5 mg Q6HP PRN PO 05/11/25 19:15 Acetaminophen 500 mg Q6HP PRN PO 05/11/25 19:15 Morphine Sulfate 1 mg Q4HP PRN IV 05/11/25 19:15 Aspirin 81 mg DAILY PO 05/12/25 10:00 05/14/25 10:27 81 MG Ticagrelor 90 mg BID PO 05/11/25 22:00 UNV Ticagrelor 90 mg BID PO 05/11/25 22:00 05/14/25 10:27 90 MG Ceftriaxone Sodium/Dextrose 50 ml @ 50 mls/hr DAILY IV 05/11/25 20:00 05/14/25 12:19 50 MLS/HR Empaglifozin 10 mg DAILY PO 05/12/25 10:00 05/14/25 10:27 10 MG Sacubitril/ Valsartan 0.5 tab BID PO 05/11/25 22:00 05/13/25 21:28 0.5 TAB Carvedilol 1.5625 mg Q12HR PO 05/11/25 22:00 05/13/25 21:32 1.5625 MG Spironolactone 25 mg DAILY PO 05/12/25 10:00 05/14/25 10:27 25 MG Insulin Human Lispro ACHS SC 05/12/25 22:00 Hold Laboratory Results Laboratory Tests 05/13/25 05:23 05/14/25 06:09 Chemistry Test 05/14/25 06:09 Calcium Level 9.7 mg/dL (8.7-10.4) Urinalysis Test 05/10/25 18:13 Urine Color Light-yellow (Yellow) Urine Clarity Clear (Clear) Urine pH 5.5 (5.0-9.0) Urine Specific [place] 1.014 (1.001-1.035) Urine Protein 1+ (Negative) H Urine Ketones 1+ (Negative) H Urine Blood Trace /uL (Negative) H Urine Nitrite Negative (Negative) Urine Bilirubin Negative (Negative) Urine Urobilinogen Normal mg/dL (Negative) Urine Leukocyte Esterase Negative /uL (Negative) Urine RBC <1 /hpf (0 - 3) Urine Microscopic WBC < 1 /HPF (0-3) Urine Squamous Epithelial Cells None seen /hpf (<5) Urine Bacteria None seen /hpf (None Seen) Urine Hyaline Casts Few /lpf (0 - 2) Urine Glucose 4+ mg/dL (Normal) H Microbiology Microbiology Date/Time Source Procedure Growth Status 05/11/25 22:31 Blood Blood Culture - Preliminary NO GROWTH AFTER 48 HOURS OF INCUBATION. Resulted Assessment/Plan Assessment/Plan Hypothermia Non ST-elevation myocardial infarction, questionable type 1 Rule out structural heart disease Cold exposure with associated hypothermia Hypertension Mixed hyperlipidemia Qza-hotvfoh-dpdeeihad diabetes mellitus Acute kidney injury due to VMN PLAN: IV fluids were given, acute kidney injury improved, no need for more fluids, the patient might have reduced ejection fraction IV heparin Aspirin Lipitor Cardiology consult Echo Cardiology is planning to do a heart catheterization as soon as possible Monitor closely Full code Not stable for transfer Advance directives discussed for 18 minutes 05/12/25: Severe CAD NSTEMI s/p RCA stenting LAD PCI scheduled for today EF 20% Heparine ASA Brilinta Lipitor Entresto Aldactone Coreg Lasix Not stable to transfer 05/13/2025: Stable No chest pain Status post LAD procedure yesterday He is still needs his circumflex artery done next week Continue the current management and observe the patient on telemetry very carefully Aspirin, Brilinta, Lipitor, Coreg, Jardiance, Lasix, Aldactone, Entresto Not stable for transfer 05/14/2025: Hypotension: Discontinue Lasix Coronary artery disease: Continue aspirin, Lipitor, Coreg, Brilinta The patient is scheduled for angioplasty and PCI of the circumflex artery in the morning Acute systolic congestive heart failure: Continue Aldactone, Entresto, Coreg, Jardiance Monitor closely Telemetry Not stable for transfer yet Acute kidney injury due to vasomotor nephropathy: Hold Lasix, starts low rate IV fluids overnight, check the kidney function again in the morning Plan discussed with: Patient Date of Service: May 14, 2025 Billing Provider: FLAQUITO FOWLER MD Common Visit Codes: [id number] INP/OBS CARE(HIGH) FLAQUITO FOWLER MD May 14, 2025 15:47
--- NOTE | 2025-05-14 20:12 | DVHPN2 ---
Progress Note - Dictate Date Seen: May 14, 2025 Medical Necessity Reason Pt with a Central, PICC or Fol: No Subjective Patient was seen and evaluated in follow up. No overnight events. Blood pressure is borderline low 100/56 this morning. Patient denies dizziness or lightheadedness. VP COMPLIANCE 1.43, GLUC 225. Telemetry reviewed. vital signs Vital Sign Date Time Temp Pulse Resp B/P (MAP) Pulse Ox O2 Delivery O2 Flow Rate FiO2 05/14/25 17:19 97.9 83 16 117/76 (90) 95 97.9 05/14/25 08:00 Room Air* 0 21 Total Intake and Output 05/13/25 05/13/25 05/14/25 15:00 23:00 07:00 Intake Total 618 ml 960 ml Balance 618 ml 960 ml medications Current Medications Medications Dose Ordered Sig/Annabelle Route Start Time Stop Time Status Last Admin Dose Admin Atorvastatin Calcium 40 mg HS PO 05/11/25 22:00 05/13/25 21:28 40 MG Insulin Glargine 10 units QAM SC 05/11/25 07:00 05/14/25 06:36 10 UNITS Diagnostic Test (Pha) 1 strip IQ4HR 05/11/25 00:00 05/14/25 12:11 1 STRIP Dextrose 50 ml UD PRN IV 05/11/25 00:00 Insulin Human Lispro 4 units AC SC 05/11/25 07:00 05/14/25 17:12 4 UNITS Nitroglycerin 0.4 mg Q5MP PRN SL 05/11/25 19:15 Cancel Acetaminophen/ Hydrocodone Bitart 1 tab Q4HP PRN PO 05/11/25 19:15 05/14/25 06:38 1 TAB Zolpidem Tartrate 5 mg QHSP PRN PO 05/11/25 19:15 Lorazepam 0.5 mg Q6HP PRN PO 05/11/25 19:15 Acetaminophen 500 mg Q6HP PRN PO 05/11/25 19:15 Morphine Sulfate 1 mg Q4HP PRN IV 05/11/25 19:15 Aspirin 81 mg DAILY PO 05/12/25 10:00 05/14/25 10:27 81 MG Ticagrelor 90 mg BID PO 05/11/25 22:00 UNV Ticagrelor 90 mg BID PO 05/11/25 22:00 05/14/25 10:27 90 MG Ceftriaxone Sodium/Dextrose 50 ml @ 50 mls/hr DAILY IV 05/11/25 20:00 05/14/25 12:19 50 MLS/HR Empaglifozin 10 mg DAILY PO 05/12/25 10:00 05/14/25 10:27 10 MG Sacubitril/ Valsartan 0.5 tab BID PO 05/11/25 22:00 05/13/25 21:28 0.5 TAB Carvedilol 1.5625 mg Q12HR PO 05/11/25 22:00 05/13/25 21:32 1.5625 MG Spironolactone 25 mg DAILY PO 05/12/25 10:00 05/14/25 10:27 25 MG Insulin Human Lispro ACHS SC 05/12/25 22:00 Hold Sodium Chloride 1,000 ml @ 50 mls/hr Q20H IV 05/14/25 15:45 objective GENERAL: Alert and oriented x 3. No acute distress. EYES: PERRL, EOMI. Anicteric. HENT: Moist mucous membranes. LUNGS: Clear to auscultation bilaterally. CARDIOVASCULAR: Regular rate and rhythm. ABDOMEN: Soft, non-tender and non-distended. EXTREMITIES: No edema. NEUROLOGIC: No focal neurological deficits. SKIN: Warm, dry. laboratory and microbiology Laboratory Tests 05/14/25 06:09 05/13/25 05:23 Test 05/14/25 06:09 Range/Units Serum Glucose 156 H 74-106 mg/dL Problem List CAD s/p staged PCI, in the RCA and LAD. HFrEF (EF 20%). Non ST-elevation myocardial infarction type 1. Rule out structural heart disease. Cold exposure with associated hypothermia. Hypertension. Dyslipidemia. Vpb-gwkogqp-vgxpufszo diabetes mellitus, uncontrolled (HgbA1C 12.3%). Acute kidney injury. Assessment/Plan Continued all current supportive medical care. Morphine and [place] for pain management. Aspirin, Lipitor, Brilinta. Coreg. Entresto. Additional plan as per the hospital course. Plan discussed with: Patient JESÚS MCDERMOTT MD May 14, 2025 18:22
[2025-05-14] MEDS: SODIUM CHLORIDE 0.9% 1,000 ML IV SCH (20:30)
[2025-05-15] VITALS (12 sets, daily range): BP systolic 105–136; BP diastolic 70–81; PULSE 75–95; RESP 16–21; TEMP 97.7–98.5; O2SAT 93–99
[2025-05-15 07:28] LABS: Anion Gap 17 (5-15); Carbon Dioxide 22 mmol/L (20-31); Chloride 102 mmol/L (98-107); Potassium 4.1 mmol/L (3.5-5.1); Sodium 141 mmol/L (136-145)
[2025-05-15 07:30] LABS: Calcium 9.5 mg/dL (8.7-10.4)
[2025-05-15 07:35] LABS: BUN/Creatinine Ratio 14.0 (10.0-20.0); Blood Urea Nitrogen 19 mg/dL (9-23); Magnesium 2.3 mg/dL (1.6-2.6)
[2025-05-15] MEDS: HEPARIN IN NS 1000Units/500mL 1,500 ML ONE (07:37)
[2025-05-15] MEDS: IODIXANOL 320MG/ML 100ML BTL IV ONE (07:37)
[2025-05-15 07:40] LABS: Glucose 190 mg/dL (74-106)
[2025-05-15] MEDS: ANGIOMAX 250 MG VIAL IV ONE (08:15)
[2025-05-15] MEDS: HEPARIN SODIUM (PORCINE) 5000 UNITS/ML 1ML VIAL ONE (08:15)
[2025-05-15] MEDS: VERAPAMIL 2.5MG/ML INJ 2ML VIAL IV ONE (08:15)
[2025-05-15] MEDS: SODIUM CHL 0.9% 50 ML ONE (08:16)
[2025-05-15] MEDS: LIDOCAINE 2%HCL (LOCAL ANESTH.) INJ 20ML MDV ONE (08:16)
[2025-05-15] MEDS: MIDAZOLAM HCL 2MG/2ML 2ml VIAL (1mg/ml) ONE (08:16)
[2025-05-15] MEDS: fentaNYL CITRATE 100 MCG/2 ML VL ONE (08:16)
[2025-05-15] MEDS: TICAGRELOR 90 MG TAB ONE (09:22)
--- NOTE | 2025-05-15 10:40 | DVHOP ---
DATE OF SURGERY: 05/15/2025 TECHNIQUE PERFORMED: * Ultrasound of the right femoral artery. * Fluoroscopic guidance and supervision. * Insertion of a 6-[place] arterial line in the right femoral artery under fluoroscopic guidance. * Left coronary angiography. * Balloon angioplasty of the left circumflex artery with 3.0 x 12 mm length semi-compliant balloon. * Stenting and angioplasty of the circumflex artery with 3.5 x 12 mm length [place] stent of Qteros. * Intravascular ultrasound of the left main and also of the left circumflex stented region. * Balloon angioplasty of the left circumflex stent with 3.5 x 8 mm in length non-compliant balloon and mid artery size up to 3.65 mm in size. * Right iliofemoral artery angiography. * Arteriotomy Angio-Seal of the right femoral artery. COMPLICATIONS: None. ASSISTANTS: Guicho Hope Carmira. INDICATIONS: The patient had a critical stenosis of the left circumflex artery and okay to proceed. The procedure, risks, and benefits, all have been explained to the patient. He understands and accepts very well. DESCRIPTION OF PROCEDURE: The patient has been brought to our CAT lab urgently over here. The indications of the risks and benefits, all have been explained to the patient. The right groin was shaved, was cleaned, and placed over a Betadine. Ultrasound was done up under aseptic precaution under local anesthesia. After giving IV sedation, the artery was punctured. A 6-[place] arterial line was placed under fluoroscopy. We have put an AL1 6-[place]an guiding catheter and the left coronary angiography was done. A ProWater wire was parked. Angiomax already was started and then we put a balloon 3.0 x 12. Balloon angioplasty was done. Subsequently, we deployed a stent 3.5 x 12 mm length [place] stent deployed at inflated initially about 10 seconds, subsequently inflated for 23 seconds. Balloon deflated. Balloon had been discontinued. Angiography was done. Results were satisfactory. There were no complications. Subsequently, now we have done intravascular ultrasound. After doing the intravascular ultrasound, we have noted there was some minor gap between the stent and the media, so we put a non-compliant balloon and made the stent size up to 3.65 mm in size proximally, medially, and distally. Balloon deployed. Balloon had been discontinued. CONCLUSION: * Prior to performing the procedure #1, the left circumflex artery has been narrowed in the range of 95% and MICHAEL grade III flow. * Post-procedure MICHAEL grade III flow residual stenosis is 0%. * No spasm. * No dissection. * No thrombosis. PLAN OF ACTION: Was to provide aspirin, Brilinta, beta-gianin, cholesterol-reducing medicine. Procedure went well. Follow up with contract recruiter at contracted hospitals and full discussion done with the patient. Pratik Frederick MD MP/BELL TID: [id number] RECEIPT: [id number] MTDGonzalez
[2025-05-15] MEDS ORDERED: DEXTROSE (50%) 50ML SYRG IV PRN (13:15)
--- NOTE | 2025-05-15 14:24 | MEDREC ---
[facility] ASP Intervention Section I [facility] ASP Intervention: Review courses of therapy (MAY CONSIDER D/CING ABX IN ABSENCE OF BACTERIAL INFECTION IF/WHEN APPROPRIATE) LE GRAVES [facility] RESIDENT May 15, 2025 14:24
--- NOTE | 2025-05-15 15:10 | DVHPN2 ---
Consult Progress Note Date Seen: May 15, 2025 Subjective Patient reports: No new complaints Review of Systems: HEENT:Normal, CVS:Normal, RESPIRATORY:Normal, GI:Normal, :Normal, MSK:Normal, NEURO:Normal Objective vital signs Vital Sign Date Time Temp Pulse Resp B/P (MAP) Pulse Ox O2 Delivery O2 Flow Rate FiO2 05/15/25 13:00 98.0 79 20 120/73 (89) 99 98.0 05/15/25 08:00 Room Air* 0 21 Total Intake and Output 05/14/25 05/14/25 05/15/25 15:00 23:00 07:00 Intake Total 1150 ml 800 ml Balance 1150 ml 800 ml medications Current Medications Medications Dose Ordered Sig/Annabelle Route Start Time Stop Time Status Last Admin Dose Admin Atorvastatin Calcium 40 mg HS PO 05/11/25 22:00 05/14/25 21:14 40 MG Insulin Glargine 10 units QAM SC 05/11/25 07:00 05/15/25 11:21 10 UNITS Diagnostic Test (Pha) 1 strip IQ4HR 05/11/25 00:00 05/15/25 11:23 1 STRIP Insulin Human Lispro 4 units AC SC 05/11/25 07:00 05/15/25 07:00 4 UNITS Nitroglycerin 0.4 mg Q5MP PRN SL 05/11/25 19:15 Cancel Acetaminophen/ Hydrocodone Bitart 1 tab Q4HP PRN PO 05/11/25 19:15 05/14/25 06:38 1 TAB Zolpidem Tartrate 5 mg QHSP PRN PO 05/11/25 19:15 Lorazepam 0.5 mg Q6HP PRN PO 05/11/25 19:15 Acetaminophen 500 mg Q6HP PRN PO 05/11/25 19:15 Morphine Sulfate 1 mg Q4HP PRN IV 05/11/25 19:15 Aspirin 81 mg DAILY PO 05/12/25 10:00 05/15/25 11:01 81 MG Ticagrelor 90 mg BID PO 05/11/25 22:00 UNV Ticagrelor 90 mg BID PO 05/11/25 22:00 05/15/25 11:01 90 MG Ceftriaxone Sodium/Dextrose 50 ml @ 50 mls/hr DAILY IV 05/11/25 20:00 05/15/25 11:00 50 MLS/HR Empaglifozin 10 mg DAILY PO 05/12/25 10:00 05/15/25 10:00 10 MG Sacubitril/ Valsartan 0.5 tab BID PO 05/11/25 22:00 05/15/25 11:01 0.5 TAB Carvedilol 1.5625 mg Q12HR PO 05/11/25 22:00 05/15/25 11:03 1.5625 MG Spironolactone 25 mg DAILY PO 05/12/25 10:00 05/15/25 11:01 25 MG Insulin Human Lispro ACHS SC 05/12/25 22:00 Hold Diagnostic Test (Pha) 1 strip ACHS 05/15/25 17:00 Insulin Human Regular ACHS SC 05/15/25 17:00 Dextrose 50 ml UD PRN IV 05/15/25 13:15 laboratory and microbiology Laboratory Tests 05/15/25 06:33 05/13/25 05:23 Test 05/15/25 06:33 Range/Units Serum Glucose 190 H 74-106 mg/dL Problem List/Assessment/Plan Problem List/Assessment/Plan Patient seen and examined at bedside. Patient is currently status post coronary artery stent placement to the circumflex artery. Patient had previously stent placed to the RCA, lad, left main and now circumflex. Patient was NPO before the procedure but still blood sugars were still elevated in the 177. Patient states this feels well overall and has no chest pain or shortness of breath at this time. We will increase Lantus from 10 units daily to 12 units daily we will keep lispro 4 units before each meal and we will start sliding scale insulin of lispro. ROS Constitutional: Denies weight loss, fever and chills. HEENT: Denies changes in vision and hearing. Respiratory: Denies shortness of breath and cough Cardiovascular: Denies chest discomfort or palpitations GI: Denies abdominal pain, nausea, vomiting and diarrhea. : Denies dysuria and urinary frequency. Musculoskeletal: Denies myalgias and joint pain Skin: Denies rash and pruritus. Neurological: Denies dizziness, headache, vision or hearing problems Physical Examination General: Patient alert and oriented in person, place and time. Patient following commands. HEENT: Normocephalic, atraumatic, moist mucous membranes Respiratory/pulmonary: Clear lungs bilaterally, vesicular murmurs present in almost all lung walker, no associated crackles or wheezes. Cardiovascular: Normal heart sounds S1 and S2 with no associated murmurs Abdomen: Abdomen nondistended, there is no pain to palpation in any of the abdominal quadrants, no palpable masses. Extremities: There is no peripheral edema present at the lower extremities. Skin: No rashes or pruritus, there is no sacral edema present at this time. Neurological: Intact cranial nerves with no focal neurologic deficits Assessment/Plan Type 2 Diabetes Mellitus - Uncontrolled (HbA1c 12.3%) NSTEMI type I S/P 4 coronary stents placed (RCA, LEFT MAIN, LAD, CX) last stent placed today Acute on chronic systolic congestive heart failure (HFrEF, LVEF 20%) Coronary artery disease Hypothermia Hypertension Dyslipidemia Non-adherent Plan -currently on Lantus 10 units daily, we will increase Lantus to 12 units daily -continue lispro 4 units before each meal -adding lispro sliding scale insulin -continue Jardiance 10 mg daily -we explained the importance of medication adherence, lifestyle modifications to prevent diabetic complications. -patient will follow up with press brake operator as an outpatient. Goals of care discussed with the patient at bedside, full code Plan discussed with Dr. Walters Plan discussed with: Patient, Other Dietary Evaluation Review Comments: Nutrition Recommendation: 1) CCHO 60gm + cardiac 2) Monitor PO intake, lab values, weight trend, and I/O Expected Outcomes/Goals: Lab values to improve FU 3-5 days Visit Coding STANDARD RES Billing Provider: TONI WALTERS MD Date of Service if different f: May 15, 2025 Common Visit Codes: [id number] INP/OBS CARE(MOD) MARIA VICTORIA JAMISON RESIDENT May 15, 2025 15:10
--- NOTE | 2025-05-15 15:39 | DVHPN2 ---
Subjective Doing well Asymptomatic Reviewed: Care Plan Changes from previous H/P or p: Changes Objective Vitals Vital Signs Date Time Temp Pulse Resp B/P (MAP) Pulse Ox O2 Delivery O2 Flow Rate FiO2 05/15/25 13:00 98.0 79 20 120/73 (89) 99 98.0 05/15/25 08:00 Room Air* 0 21 Intake/Output Intake and Output 05/15/25 07:00 Intake Total 1950 ml Balance 1950 ml Intake Oral 1950 ml # Voids 9 # Bowel Movements 2 General Appearance: Alert, Oriented X3, Cooperative, No acute distress Lungs: Clear to auscultation, Normal air movement Cardiovascular: Regular rate, Normal S1, Normal S2 Abdomen: Normal bowel sounds, Soft, No tenderness Extremities: No edema Medications Current Medications Medications Dose Ordered Sig/Annabelle Route Start Time Stop Time Status Last Admin Dose Admin Atorvastatin Calcium 40 mg HS PO 05/11/25 22:00 05/14/25 21:14 40 MG Insulin Human Lispro 4 units AC SC 05/11/25 07:00 05/15/25 07:00 4 UNITS Nitroglycerin 0.4 mg Q5MP PRN SL 05/11/25 19:15 Cancel Acetaminophen/ Hydrocodone Bitart 1 tab Q4HP PRN PO 05/11/25 19:15 05/14/25 06:38 1 TAB Zolpidem Tartrate 5 mg QHSP PRN PO 05/11/25 19:15 Lorazepam 0.5 mg Q6HP PRN PO 05/11/25 19:15 Acetaminophen 500 mg Q6HP PRN PO 05/11/25 19:15 Morphine Sulfate 1 mg Q4HP PRN IV 05/11/25 19:15 Aspirin 81 mg DAILY PO 05/12/25 10:00 05/15/25 11:01 81 MG Ticagrelor 90 mg BID PO 05/11/25 22:00 UNV Ticagrelor 90 mg BID PO 05/11/25 22:00 05/15/25 11:01 90 MG Ceftriaxone Sodium/Dextrose 50 ml @ 50 mls/hr DAILY IV 05/11/25 20:00 05/15/25 11:00 50 MLS/HR Empaglifozin 10 mg DAILY PO 05/12/25 10:00 05/15/25 10:00 10 MG Sacubitril/ Valsartan 0.5 tab BID PO 05/11/25 22:00 05/15/25 11:01 0.5 TAB Carvedilol 1.5625 mg Q12HR PO 05/11/25 22:00 05/15/25 11:03 1.5625 MG Spironolactone 25 mg DAILY PO 05/12/25 10:00 05/15/25 11:01 25 MG Diagnostic Test (Pha) 1 strip ACHS 05/15/25 17:00 Dextrose 50 ml UD PRN IV 05/15/25 13:15 Insulin Human Lispro ACHS SC 05/15/25 17:00 Insulin Glargine 12 units QAM SC 05/16/25 07:00 Laboratory Results Laboratory Tests 05/13/25 05:23 05/15/25 06:33 Chemistry Test 05/15/25 06:33 Calcium Level 9.5 mg/dL (8.7-10.4) Magnesium Level 2.3 mg/dL (1.6-2.6) Urinalysis Test 05/10/25 18:13 Urine Color Light-yellow (Yellow) Urine Clarity Clear (Clear) Urine pH 5.5 (5.0-9.0) Urine Specific [place] 1.014 (1.001-1.035) Urine Protein 1+ (Negative) H Urine Ketones 1+ (Negative) H Urine Blood Trace /uL (Negative) H Urine Nitrite Negative (Negative) Urine Bilirubin Negative (Negative) Urine Urobilinogen Normal mg/dL (Negative) Urine Leukocyte Esterase Negative /uL (Negative) Urine RBC <1 /hpf (0 - 3) Urine Microscopic WBC < 1 /HPF (0-3) Urine Squamous Epithelial Cells None seen /hpf (<5) Urine Bacteria None seen /hpf (None Seen) Urine Hyaline Casts Few /lpf (0 - 2) Urine Glucose 4+ mg/dL (Normal) H Microbiology Microbiology Date/Time Source Procedure Growth Status 05/11/25 22:31 Blood Blood Culture - Preliminary NO GROWTH AFTER 72 HOURS OF INCUBATION. Resulted Assessment/Plan Assessment/Plan Hypothermia Non ST-elevation myocardial infarction, questionable type 1 Rule out structural heart disease Cold exposure with associated hypothermia Hypertension Mixed hyperlipidemia [id number] diabetes mellitus Acute kidney injury due to VMN PLAN: IV fluids were given, acute kidney injury improved, no need for more fluids, the patient might have reduced ejection fraction IV heparin Aspirin Lipitor Cardiology consult Echo Cardiology is planning to do a heart catheterization as soon as possible Monitor closely Full code Not stable for transfer Advance directives discussed for 18 minutes 05/12/25: Severe CAD NSTEMI s/p RCA stenting LAD PCI scheduled for today EF 20% Heparine ASA Brilinta Lipitor Entresto Aldactone Coreg Lasix Not stable to transfer 05/13/2025: Stable No chest pain Status post LAD procedure yesterday He is still needs his circumflex artery done next week Continue the current management and observe the patient on telemetry very carefully Aspirin, Brilinta, Lipitor, Coreg, Jardiance, Lasix, Aldactone, Entresto Not stable for transfer 05/14/2025: Hypotension: Discontinue Lasix Coronary artery disease: Continue aspirin, Lipitor, Coreg, Brilinta The patient is scheduled for angioplasty and PCI of the circumflex artery in the morning Acute systolic congestive heart failure: Continue Aldactone, Entresto, Coreg, Jardiance Monitor closely Telemetry Not stable for transfer yet Acute kidney injury due to vasomotor nephropathy: Hold Lasix, starts low rate IV fluids overnight, check the kidney function again in the morning 05/15/25: S/p PCI angioplasty Cx Continue ASA and Brilinta EUGENIO: Stable HFrEF: Entresto, Coreg, Jardiance, Aldactone Not stable for transfer DC home tomorrow Plan discussed with: Patient My Orders Orders - FLAQUITO FOWLER MD Procedure Category Date Status Time Complete Blood Count LAB 05/16/25 Verified 04:00 Comprehensive LAB 05/16/25 Verified Metabolic Panel 04:00 Magnesium LAB 05/16/25 Verified 04:00 Date of Service: May 15, 2025 Billing Provider: FLAQUITO FOWLER MD Common Visit Codes: [id number] INP/OBS CARE(HIGH) FLAQUITO FOWLER MD May 15, 2025 15:39
[2025-05-15] MEDS ORDERED: InsuLIN REG 1unit/0.01ml Soln (100units/ml) SC SCH (17:00)
[2025-05-15] MEDS: INSULIN LISPRO (HUMAN) 100 UNITS/ML ML SC SCH (17:01)
[2025-05-15] MEDS: ACCU-CHEK COMFORT CURVE STRIP VI SCH (17:01)
--- NOTE | 2025-05-15 19:35 | DVHPN2 ---
Progress Note - Dictate Date Seen: May 15, 2025 Medical Necessity Reason Pt with a Central, PICC or Fol: No Subjective Patient was seen and evaluated in follow up. Patient underwent left coronary angiography, balloon angioplasty of the left circumflex artery, stenting and angioplasty of the circumflex artery, balloon angioplasty of the left circumflex stent, right iliofemoral artery angiography. Patient is advised for Aspirin, Brilinta, beta-gianni, cholesterol-reducing medicine. Procedure went well. Follow up with head irrigator at contracted hospitals and full discussion done with the patient. Telemetry reviewed. vital signs Vital Sign Date Time Temp Pulse Resp B/P (MAP) Pulse Ox O2 Delivery O2 Flow Rate FiO2 05/15/25 17:00 97.7 75 18 130/76 (94) 95 97.7 05/15/25 08:00 Room Air* 0 21 Total Intake and Output 05/14/25 05/14/25 05/15/25 15:00 23:00 07:00 Intake Total 1150 ml 800 ml Balance 1150 ml 800 ml medications Current Medications Medications Dose Ordered Sig/Annabelle Route Start Time Stop Time Status Last Admin Dose Admin Atorvastatin Calcium 40 mg HS PO 05/11/25 22:00 05/14/25 21:14 40 MG Insulin Human Lispro 4 units AC SC 05/11/25 07:00 05/15/25 17:01 4 UNITS Nitroglycerin 0.4 mg Q5MP PRN SL 05/11/25 19:15 Cancel Acetaminophen/ Hydrocodone Bitart 1 tab Q4HP PRN PO 05/11/25 19:15 05/14/25 06:38 1 TAB Zolpidem Tartrate 5 mg QHSP PRN PO 05/11/25 19:15 Lorazepam 0.5 mg Q6HP PRN PO 05/11/25 19:15 Acetaminophen 500 mg Q6HP PRN PO 05/11/25 19:15 Morphine Sulfate 1 mg Q4HP PRN IV 05/11/25 19:15 Aspirin 81 mg DAILY PO 05/12/25 10:00 05/15/25 11:01 81 MG Ticagrelor 90 mg BID PO 05/11/25 22:00 UNV Ticagrelor 90 mg BID PO 05/11/25 22:00 05/15/25 11:01 90 MG Ceftriaxone Sodium/Dextrose 50 ml @ 50 mls/hr DAILY IV 05/11/25 20:00 05/15/25 11:00 50 MLS/HR Empaglifozin 10 mg DAILY PO 05/12/25 10:00 05/15/25 10:00 10 MG Sacubitril/ Valsartan 0.5 tab BID PO 05/11/25 22:00 05/15/25 11:01 0.5 TAB Carvedilol 1.5625 mg Q12HR PO 05/11/25 22:00 05/15/25 11:03 1.5625 MG Spironolactone 25 mg DAILY PO 05/12/25 10:00 05/15/25 11:01 25 MG Diagnostic Test (Pha) 1 strip ACHS 05/15/25 17:00 05/15/25 17:01 1 STRIP Dextrose 50 ml UD PRN IV 05/15/25 13:15 Insulin Human Lispro ACHS SC 05/15/25 17:00 05/15/25 17:01 3 UNITS Insulin Glargine 12 units QAM SC 05/16/25 07:00 objective GENERAL: Alert and oriented x 3. No acute distress. EYES: PERRL, EOMI. Anicteric. HENT: Moist mucous membranes. LUNGS: Clear to auscultation bilaterally. CARDIOVASCULAR: Regular rate and rhythm. ABDOMEN: Soft, non-tender and non-distended. EXTREMITIES: No edema. NEUROLOGIC: No focal neurological deficits. SKIN: Warm, dry. laboratory and microbiology Laboratory Tests 05/15/25 06:33 05/13/25 05:23 Test 05/15/25 06:33 Range/Units Serum Glucose 190 H 74-106 mg/dL Problem List CAD s/p staged PCI, in the RCA and LAD. HFrEF (EF 20%). Non ST-elevation myocardial infarction type 1. Rule out structural heart disease. Cold exposure with associated hypothermia. Hypertension. Dyslipidemia. Uzh-[id number]-bflyibzjd diabetes mellitus, uncontrolled (HgbA1C 12.3%). Acute kidney injury. Assessment/Plan Continued all current supportive medical care. Morphine and Jamul for pain management. Aspirin, Lipitor, Brilinta. Coreg. Entresto. Additional plan as per the hospital course. Dietary Evaluation Review Comments: Nutrition Recommendation: 1) CCHO 60gm + cardiac 2) Monitor PO intake, lab values, weight trend, and I/O Expected Outcomes/Goals: Lab values to improve FU 3-5 days Plan discussed with: Patient JESÚS MCDERMOTT MD May 15, 2025 19:35
[2025-05-15] MEDS: ACETAMINOPHEN 500 MG TAB or CAP PO PRN (20:51)
[2025-05-16] VITALS (7 sets, daily range): BP systolic 98–117; BP diastolic 56–71; PULSE 79–94; RESP 14–18; TEMP 97.7–98.8; O2SAT 95–98
[2025-05-16] MEDS: INSULIN LANTUS (GLARGINE) 1 /0.01ml (100units/ml) SC SCH (06:32)
[2025-05-16 07:52] LABS: Hematocrit 45.7 % (41.0-53.0); Hemoglobin 15.0 g/dL (13.5-17.5); Mean Corpuscular Hemoglobin 29.2 pg (28.0-32.0); Mean Corpuscular Volume 89.0 fL (80.0-100.0); Nucleated Red Blood Cells % 0.2 %
[2025-05-16 08:06] LABS: Alanine Aminotransferase 35 U/L (7-40); Albumin 4.4 g/dL (3.2-4.8); Anion Gap 19 (5-15); BUN/Creatinine Ratio 13.2 (10.0-20.0); Blood Urea Nitrogen 18 mg/dL (9-23); Calcium 9.7 mg/dL (8.7-10.4); Carbon Dioxide 20 mmol/L (20-31); Chloride 101 mmol/L (98-107); Magnesium 2.3 mg/dL (1.6-2.6); Potassium 4.1 mmol/L (3.5-5.1); Sodium 140 mmol/L (136-145); Total Protein 7.4 g/dL (5.7-8.2)
[2025-05-16 08:07] LABS: Alkaline Phosphatase 164 U/L (46-116); Bilirubin, Total 0.7 mg/dL (0.2-1.0); Glucose 183 mg/dL (74-106)
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
[2025-05-16 15:17] LABS: Chloride 100 mmol/L (98-107); Potassium 3.6 mmol/L (3.5-5.1); Sodium 136 mmol/L (136-145)
[2025-05-16 15:18] LABS: Anion Gap 11 (5-15); Carbon Dioxide 25 mmol/L (20-31)
[2025-05-16 15:19] LABS: Calcium 9.4 mg/dL (8.7-10.4)
[2025-05-16 15:23] LABS: BUN/Creatinine Ratio 11.7 (10.0-20.0); Blood Urea Nitrogen 15 mg/dL (9-23)
[2025-05-16 15:24] LABS: Glucose 110 mg/dL (74-106)
[2025-05-16 15:40] LABS: Base Excess -5.4 mmol/L (-2.0-3.0)
[2025-05-16] MEDS ORDERED: SACU1TAB PO (15:48)
[2025-05-16] MEDS ORDERED: ASPI1TAB20 PO (15:48)
[2025-05-16] MEDS ORDERED: ATOR-507 PO (15:48)
[2025-05-16] MEDS ORDERED: CARV-214 OR (15:48)
[2025-05-16] MEDS ORDERED: CLOP75TA28 PO (15:48)
[2025-05-16] MEDS: CLOPIDOGREL BISULFATE 75 MG TAB PO ONE (16:53)
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
== END 2025-05-16 17:30 | disposition home or self-care (01) | DRG 359 ==
LOC: EDBD 14:05 → ER 14:05 → OVERFLOW 23:42 → UNDOADMIN 23:42 → OVERFLOW 05-11 05:00 → TELE-CENTR 05-11 05:00 → OVERFLOW 05-11 19:01
PROVIDERS: ADMIT Internal Medicine Geriatric Medicine; ATTEND Internal Medicine Geriatric Medicine
PROC: 02C03ZZ Extirpation of Matter from Coronary Artery, One Artery, Percutaneous Approach (ICD-10-PCS; principal; 2025-05-11)
PROC: 027034Z Dilation of Coronary Artery, One Artery with Drug-eluting Intraluminal Device, Percutaneous Approach (ICD-10-PCS; 2025-05-11)
PROC: 03HY32Z Insertion of Monitoring Device into Upper Artery, Percutaneous Approach (ICD-10-PCS; 2025-05-11)
PROC: 4A023N7 Measurement of Cardiac Sampling and Pressure, Left Heart, Percutaneous Approach (ICD-10-PCS; 2025-05-11)
PROC: B211YZZ Fluoroscopy of Multiple Coronary Arteries using Other Contrast (ICD-10-PCS; 2025-05-11)
PROC: B215YZZ Fluoroscopy of Left Heart using Other Contrast (ICD-10-PCS; 2025-05-11)
PROC: B240ZZ3 Ultrasonography of Single Coronary Artery, Intravascular (ICD-10-PCS; 2025-05-11)
PROC: 027035Z Dilation of Coronary Artery, One Artery with Two Drug-eluting Intraluminal Devices, Percutaneous Approach (ICD-10-PCS; 2025-05-12)
PROC: 02C03ZZ Extirpation of Matter from Coronary Artery, One Artery, Percutaneous Approach (ICD-10-PCS; 2025-05-12)
PROC: 03HY32Z Insertion of Monitoring Device into Upper Artery, Percutaneous Approach (ICD-10-PCS; 2025-05-12)
PROC: B210YZZ Fluoroscopy of Single Coronary Artery using Other Contrast (ICD-10-PCS; 2025-05-12)
PROC: 027034Z Dilation of Coronary Artery, One Artery with Drug-eluting Intraluminal Device, Percutaneous Approach (ICD-10-PCS; 2025-05-15)
PROC: 03HY32Z Insertion of Monitoring Device into Upper Artery, Percutaneous Approach (ICD-10-PCS; 2025-05-15)
PROC: B240ZZ3 Ultrasonography of Single Coronary Artery, Intravascular (ICD-10-PCS; 2025-05-15)
PROC: B215YZZ Fluoroscopy of Left Heart using Other Contrast (ICD-10-PCS; 2025-05-15)
DX: I21.4 Non-ST elevation (NSTEMI) myocardial infarction (principal); I50.23 Acute on chronic systolic (congestive) heart failure; N17.0 Acute kidney failure with tubular necrosis; J69.0 Pneumonitis due to inhalation of food and vomit; I11.0 Hypertensive heart disease with heart failure; E11.65 Type 2 diabetes mellitus with hyperglycemia; T68.XXXA Hypothermia, initial encounter; I25.10 Atherosclerotic heart disease of native coronary artery without angina pectoris; E78.2 Mixed hyperlipidemia; X31.XXXA Exposure to excessive natural cold, initial encounter; Z82.49 Family history of ischemic heart disease and other diseases of the circulatory system; Z91.199 Patient's noncompliance with other medical treatment and regimen due to unspecified reason; Z91.013 Allergy to seafood; Z82.3 Family history of stroke; Z83.3 Family history of diabetes mellitus; Z79.84 Long term (current) use of oral hypoglycemic drugs
CPT/HCPCS: 36415; 36600; 71045; 80048; 80053; 80061; 80307; 80320; 81001; 82010; 82550; 82805; 82962; 83036; 83605; 83690; 83735; 83880; 84100; 84484; 85025; 85610; 85730; 86803; 86850; 86900; 86901; 87040; 87340; 92941; 92973; 92978; 93005; 93306; 93454; 93458; 96365; 96367; 99152; C1874; C1887; G0378; J1815; J2250; J2543; J3490; Q9967